=== PATIENT | male | born 1960 | race American Indian/Alaskan Native ===

== ENCOUNTER 2017-08-19 20:52 | Inpatient (IN) | payer BC ==
[2017-08-19] MEDS ORDERED: ASPIRIN PO ONE (21:24)
[2017-08-19 21:43] LABS: Basophils % (Auto) 0.5 % (0.0-1.8); Eosinophils % (Auto) 0.4 % (0.0-4.3); Hematocrit 50.7 % (35.5-45.6); Hemoglobin 16.9 gm/dl (11.8-15.2); Lymphocytes # (Auto) 1.6 K/mm3 (1.2-5.4); Lymphocytes % (Auto) 17.6 % (13.4-35.0); Mean Corpuscular HGB Conc 33 % (32-34); Mean Corpuscular Hemoglobin 31 pg (28-32); Mean Corpuscular Volume 92 fl (84-94); Monocytes # (Auto) 0.6 K/mm3 (0.0-0.8); Monocytes % (Auto) 6.6 % (0.0-7.3); Platelet Count 225 K/mm3 (140-440); Red Blood Count 5.51 M/mm3 (3.65-5.03)
[2017-08-19 22:18] LABS: Chol/HDL Ratio 2.93 %
--- NOTE | 2017-08-19 22:42 | Emergency Department Report ---
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 Reports driving over 400 miles over the past few days consecutively. Comes to the ER on the day of presentation after passing out a few times and feeling weak and dizzy. This is a new sensation for him. It is associated with intermittent chest pain. Chest pains described as tight. It does not have exacerbating or relieving factors. He denies hematemesis and bright red blood per rectum. He complains of acute on chronic mechanical lower back pain. He denies focal extremity weakness, numbness. -: Sudden Location: chest Quality: aching Consistency: intermittent Improves with: movement, rest Associated Symptoms: chest pain, loss of appetite, malaise, shortness of breath , syncope, weakness. denies: confusion, cough, diaphoresis, fever/chills, headaches, nausea/vomiting, rash, seizure - Related Data Home Medications Medication Instructions Recorded Confirmed Last Taken Unobtainable 08/19/17 08/19/17 Unknown Allergies Allergy/AdvReac Type Severity Reaction Status Date / Time No Known Allergies Allergy Unverified 08/19/17 21:23 ED Review of Systems ROS: Stated complaint: CHEST PAIN Other details as noted in HPI Constitutional: malaise, weakness Eyes: denies: eye discharge ENT: denies: epistaxis Respiratory: shortness of breath Cardiovascular: syncope Gastrointestinal: denies: hematemesis, hematochezia Genitourinary: denies: dysuria Musculoskeletal: back pain Skin: denies: lesions Neurological: weakness Psychiatric: anxiety ED Past Medical Hx - Past Medical History Hx Hypertension: Yes - Surgical History Past Surgical History?: No - Social History Smoking Status: Current Every Day Smoker Substance Use Type: None - Medications Home Medications: Home Medications Medication Instructions Recorded Confirmed Last Taken Type Unobtainable 08/19/17 08/19/17 Unknown History ED Physical Exam - General Limitations: No Limitations General appearance: alert, in distress - Head Head exam: Present: atraumatic, normocephalic - Eye Eye exam: Present: normal appearance - ENT ENT exam: Present: normal exam, normal orophraynx, mucous membranes moist - Neck Neck exam: Present: normal inspection - Respiratory Respiratory exam: Present: normal lung sounds bilaterally. Absent: respiratory distress - Cardiovascular Cardiovascular Exam: Present: normal rhythm, tachycardia, normal heart sounds. Absent: systolic murmur, diastolic murmur, rubs, gallop - GI/Abdominal GI/Abdominal exam: Present: soft, normal bowel sounds. Absent: distended, tenderness, guarding, rebound, rigid, pulsatile mass - Rectal Rectal exam: Present: deferred - Extremities Exam Extremities exam: Present: normal inspection, full ROM, normal capillary refill , pedal edema, other (2+ pulses noted in the bilateral upper, lower extremities. ). Absent: tenderness, calf tenderness - Back Exam Back exam: Present: normal inspection, full ROM. Absent: tenderness, CVA tenderness (R), paraspinal tenderness, vertebral tenderness - Neurological Exam Neurological exam: Present: alert, oriented X3, CN II-XII intact, normal gait. Absent: motor sensory deficit - Psychiatric Psychiatric exam: Present: normal affect, normal mood - Skin Skin exam: Present: warm, dry, intact, normal color. Absent: rash ED Course Vital Signs 08/19/17 08/19/17 08/19/17 21:01 21:15 22:40 Temperature 97.7 F 97.7 F Pulse Rate 110 H 70 Respiratory 16 22 Rate Blood Pressure 96/69 96/69 O2 Sat by Pulse 91 100 96 Oximetry 08/19/17 08/19/17 08/19/17 22:46 23:00 23:08 Temperature Pulse Rate Respiratory 14 24 Rate Blood Pressure 95/61 O2 Sat by Pulse 95 95 Oximetry 08/19/17 08/19/17 08/19/17 23:40 23:46 23:50 Temperature Pulse Rate Respiratory 10 L Rate Blood Pressure 83/53 126/82 126/82 O2 Sat by Pulse 94 92 Oximetry 08/20/17 00:28 Temperature Pulse Rate Respiratory Rate Blood Pressure 126/82 O2 Sat by Pulse 97 Oximetry ED Medical Decision Making - Lab Data Result diagrams: 08/19/17 23:36 08/19/17 21:30 - EKG Data -: EKG Interpreted by Me Rate: tachycardia - EKG Data 08/20/17 00:56 Sinus tachycardia, left axis deviation, left anterior fascicular block, basic T wave V3, V4, abnormal EKG, not a stemi - Radiology Data Radiology results: report reviewed, image reviewed X-ray of the chest is negative for acute disease. Noncontrast CT scan of the brain is negative. Noncontrast CT scan of the lungs/thorax negative. 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 High probability for pulmonary embolus. Patient could not be systemically anticoagulated until a noncontrast CT scan of the brain resulted as negative for hemorrhage. Laboratory studies suggest massive/submassive pulmonary embolus. Case discussed with vascular surgery consult Dr. Martinez, who was in agreement with noncontrast CT scan of the chest to assess for right ventricular strain (it is his opinion that the CT scan of the chest does demonstrate a dilated main pulmonary artery as well as a dilated right ventricle), as well as to obtain an empiric new clean medicine study. He is amenable to unfractionated heparin bolus and then drip. The patient's physical exam findings, laboratory studies and radiology studies have been discussed with Dr. Martinez, and he plans to perform a catheter directed lysis first thing in the morning. The patient does not have contraindications to systemic anticoagulation. There is no pulsatile abdominal mass, and he complained of chronic mechanical lower back pain for which she received fentanyl. His blood pressure improved with supportive care. Case was discussed with cardiology on-call, Dr. Sosa Valdez; his group will follow in consultation. Case presented to the Hospital physician, Dr. Morillo, who accepted the patient to the medical service. Patient will be triaged to the intensive care unit with presumed diagnosis of submassive pulmonary embolus, the ICU physician has been paged to arrange admission. Critical Care Time: Yes Critical care time in (mins) excluding proc time.: 60 Critical care attestation.: If time is entered above; I have spent that time in minutes in the direct care of this critically ill patient, excluding procedure time. ED Disposition Clinical Impression: MAITE (acute kidney injury) Syncope Qualifiers: Syncope type: unspecified Qualified Code(s): R55 - Syncope and collapse Disposition: OP ADMIT IP TO THIS HOSP Is pt being admited?: Yes Condition: Critical Instructions: Syncope (ED) Referrals: PRIMARY CARE, [Primary Care Provider] - 3-5 Days
[2017-08-19] MEDS ORDERED: SUBLIMAZE IV ONE (22:56)
[2017-08-19] MEDS ORDERED: NACL 0.9% 250ML 250 ML IV ONE (22:57)
[2017-08-19] MEDS ORDERED: HEPARIN 10,000 UNITS/10 ML IV ONE (23:08)
--- NOTE | 2017-08-19 23:11 | XRay Report ---
FINAL REPORT EXAM: XR CHEST 1V AP HISTORY: Chestpain and ESTEPHANIE TECHNIQUE: upright single view chest PRIORS: None. FINDINGS: Cardiac and mediastinal contours are unremarkable. No focal pulmonary infiltrate is identified. No pleural fluid collection seen. Pulmonary vasculature is unremarkable. IMPRESSION: Negative single-view chest
[2017-08-19 23:32] LABS: INR 1.01 (0.87-1.13)
[2017-08-19 23:33] LABS: Partial Thromboplastin Time 30.9 Sec. (24.2-36.6)
--- NOTE | 2017-08-19 23:33 | Event Note ---
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 No STEMI on EKG. Discussed with Dr. Perea. Bedside echo was attempted but pictures were poor quality. Recommend noncontrast CT of the chest to exclude lung pathology and attempt to assess right to left ventricle ratio, and VQ scan to exclude pulmonary embolism. Based on CT scan and VQ scan, can determine if PE and need for catheter directed thrombolysis. Heparin drip in the interim is reasonable based on the patient's serious condition, and time it will take to obtain a VQ scan.
[2017-08-19] MEDS ORDERED: HEPARIN/ 0.45% NACL-25,000 UNIT/500 ML 25,000 UNIT/500 ML BAG IV SCH (23:45)
[2017-08-19 23:48] LABS: Hematocrit 46.4 % (35.5-45.6); Hemoglobin 16.2 gm/dl (11.8-15.2)
--- NOTE | 2017-08-19 23:59 | Cat Scan Report ---
FINAL REPORT EXAM: CT HEAD/BRAIN WO CON HISTORY: syncope TECHNIQUE: CT head without contrast PRIORS: None. FINDINGS: No acute intra-axial or extra-axial hemorrhage is identified. There is no evidence of midline shift or mass effect. The ventricles and sulci are within normal limits. Campbell-white matter differentiation is intact. No acute parenchymal abnormalities seen. Bony calvarium is grossly intact. Visualized portions of the mastoids and paranasal sinuses are unremarkable. IMPRESSION: Negative CT head
--- NOTE | 2017-08-20 00:37 | Cat Scan Report ---
FINAL REPORT PROCEDURE: CT CHEST WO CON TECHNIQUE: Computerized axial tomography of the chest was performed without contrast material. This study is performed without intravenous contrast and the sensitivity for pathology, including neoplasms, adenopathy, abscess, pulmonary embolism and aortic dissection, is reduced. HISTORY: dyspnea COMPARISON: No prior studies are available for comparison. TECHNICAL QUALITY: Satisfactory. FINDINGS: Heart and pericardium: Normal. Thoracic aorta: Normal. Pulmonary vasculature: Normal. Lymph nodes: No enlarged thoracic lymph nodes. Lungs: There is suboptimal inspiration. There is discoid atelectasis at the lung bases. There are no active infiltrates.. Pleural space: No effusion, thickening, or pneumothorax. Musculoskeletal structures: No significant abnormality. Upper abdominal structures: No significant abnormality. There is a lobulated cyst in the left kidney measuring 2.8 centimeters. IMPRESSION: There is no acute cardiopulmonary abnormality..
--- NOTE | 2017-08-20 00:51 | Nuclear Medicine Report ---
FINAL REPORT PROCEDURE: NM LUNG SCAN PERF/VENT TECHNIQUE: Five mCi Tc-99m MAA was injected IV for pulmonary perfusion imaging in multiple projections. Fifteen mCi XE-133 was inhaled for pulmonary ventilation imaging in multiple projections. Injection site: RIGHT antecubital fossa. CPT 25396 REGULATORY GUIDELINES: The patient was released based upon guidelines established in [place] State Regulations for Protection Against Radiation, Chapter 1199-03-16-35, Release of Individuals Containing Radioactive Drugs or Implants. HISTORY: suspect pe COMPARISON: No prior studies are available for comparison. FINDINGS: Perfusion: There are segmental perfusion defects in the right lung.. Ventilation: No defects . IMPRESSION: High probability of pulmonary embolism involving the right pulmonary artery. Dr. Kyle was notified by telephone at 11:41 p.m. [facility]
[2017-08-20] MEDS ORDERED: SODIUM CHLORIDE FLUSH SYRINGE 10 ML IV PRN (01:46)
[2017-08-20] MEDS ORDERED: TYLENOL PO PRN (01:46)
[2017-08-20] MEDS ORDERED: ZOFRAN IV PRN (01:46)
[2017-08-20] MEDS ORDERED: MORPHINE IV PRN (01:46)
--- NOTE | 2017-08-20 01:52 | History and Physical Report ---
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 He drove to [place], and the yesterday, he came out of the truck after 3 hours and after walking a few steps lightheaded and had a syncopal episode, unclear how long. He finished up his work, drove back to [place], when he got home and came out of his vehicle, he had another syncopal episode. He also complained of nausea, feeling sick, shortness of breath and left-sided chest pain. The pain he described as dull, constant, intensity 7/10 radiating to the back. Review of systems Constitutional: no weight loss, chills, fever Ears, eyes, nose, mouth and throat: no nasal congestion, no nasal discharge, no sinus pressure, no vision change, no red eye. Neck: No neck pain or rigidity. Cardiovascular: no chest pain, palpitations Respiratory: no cough, shortness of breath Gastrointestinal: no abdominal pain hematochezia Genitourinary : no frequency , no hematuria Musculoskeletal: no joint swelling or muscle ache Integumentary: no rash, no pruritis Neurological: no parathesias, no numbness, no focal weakness Endocrine: no cold or heat intolerance, no polyuria or polydipsia Hematologic/Lymphatic: no easy bruising, no easy bleeding, no gland swelling Allergic/Immunologic: no urticaria, no angioedema. PAST MEDICAL HISTORY: Hypertension, chronic kidney disease PAST SURGICAL HISTORY: Hand surgery SOCIAL HISTORY: No alcohol, no drugs, tobacco FAMILY HISTORY: Hypertension Medications and Allergies Allergies Allergy/AdvReac Type Severity Reaction Status Date / Time No Known Allergies Allergy Unverified 08/19/17 21:23 Home Medications Medication Instructions Recorded Confirmed Last Taken Type Unobtainable 08/19/17 08/19/17 Unknown History Active Meds: Active Medications Acetaminophen (Tylenol) 650 mg PO Q4H PRN PRN Reason: Pain MILD(1-3)/Fever >100.5/SHELBY Heparin Sodium/Sodium Chloride (Heparin/ 0.45% Nacl-25,000 Unit/500 Ml) 25,000 unit in 500 mls @ 29 mls/hr IV TITR OPHELIA; Protocol Last Admin: 08/20/17 01:02 Dose: 1,450 units/hr, 29 mls/hr Morphine Sulfate (Morphine) 2 mg IV Q4H PRN PRN Reason: Pain, Moderate (4-6) Ondansetron HCl (Zofran) 4 mg IV Q8H PRN PRN Reason: Nausea And Vomiting Sodium Chloride (Sodium Chloride Flush Syringe 10 Ml) 10 ml IV BID OPHELIA Exam - Physical Exam Narrative exam: Gen. appearance: Patient lying in bed, no apparent distress HEENT: Normocephalic, atraumatic, pupils equally round and reactive to light, extraocular movement intact, and no sclericterus,. No JVD or thyromegaly or nodule,neck supple, no carotid bruit ,mucous membranes moist, no exudate or erythema Heart: S1, S2, regular rate and rhythm Lungs: Clear bilaterally, breathing comfortable Abdomen: Positive bowel sounds, non-tender, nondistended, no organomegaly Extremity:no edema cyanosis, clubbing Skin: no rash, dry, warm Neuro: Oriented 3, cranial nerves II-12 intact, speech is fluent, motor and sensory intact - Constitutional Vitals: Temp Pulse Resp BP Pulse Ox 97.7 F 102 H 19 92/60 95 08/19/17 21:15 08/20/17 00:46 08/20/17 00:46 08/20/17 00:46 08/20/17 00:46 Results - Labs CBC & Chem 7: 08/19/17 23:36 08/19/17 21:30 Labs: Abnormal lab results 08/19/17 08/19/17 08/19/17 Range/Units 21:30 21:30 23:08 RBC 5.51 H (3.65-5.03) M/mm3 Hgb 16.9 H (11.8-15.2) gm/dl Hct 50.7 H (35.5-45.6) % Seg Neutrophils % 74.9 H (40.0-70.0) % Carbon Dioxide 21 L (22-30) mmol/L Creatinine 1.7 H (0.8-1.5) mg/dL Glucose 137 H (75-100) mg/dL Calcium 11.0 H (8.4-10.2) mg/dL Total Creatine Kinase 281 H (55-170) units/L Troponin T 0.200 H* (0.00-0.029) ng/mL NT-Pro-B Natriuret Pep 3990 H (0-900) pg/mL 08/19/17 Range/Units 23:36 RBC (3.65-5.03) M/mm3 Hgb 16.2 H (11.8-15.2) gm/dl Hct 46.4 H (35.5-45.6) % Seg Neutrophils % (40.0-70.0) % Carbon Dioxide (22-30) mmol/L Creatinine (0.8-1.5) mg/dL Glucose (75-100) mg/dL Calcium (8.4-10.2) mg/dL Total Creatine Kinase (55-170) units/L Troponin T (0.00-0.029) ng/mL NT-Pro-B Natriuret Pep (0-900) pg/mL - Imaging and Cardiology EKG: image reviewed Chest x-ray: report reviewed CT scan - chest: report reviewed CT Scan - head: report reviewed Assessment and Plan v/q showed high probability of pulmonary emboli Assessment Acute pulmonary emboli Abnormal cardiac enzymes most likely secondary to #1 Hypertension Chronic kidney disease Plan Admit to medicine Continue heparin drip, monitor serial hemoglobin Consult vascular cardiology Check Doppler of the lower extremity DVT prophylaxis
[2017-08-20 08:45] LABS: Hematocrit 45.2 % (35.5-45.6); Hemoglobin 15.3 gm/dl (11.8-15.2); Mean Corpuscular HGB Conc 34 % (32-34); Mean Corpuscular Hemoglobin 31 pg (28-32); Mean Corpuscular Volume 91 fl (84-94); Platelet Count 200 K/mm3 (140-440); Red Blood Count 4.96 M/mm3 (3.65-5.03); Red Cell Distribution Width 13.8 % (13.2-15.2)
--- NOTE | 2017-08-20 10:11 | Consultation ---
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 Patient denies any chest pain any nausea vomiting has some right tingliness of the right foot with mild swelling. I reviewed the noncontrast CT which demonstrates right to left ventricular enlargement greater than 1. The exact ratio is difficult to determine due to lack of contrast. Echo confirms severe right heart strain. VQ scan demonstrates high probability of PE. Patient has acute renal failure precluding CT angiogram. Has elevated BNP and troponins. Patient was initially hypotensive upon arrival, but this improved with administration of IV fluids. He was still tachycardic at time that I visited him, and had labored breathing. Past History Past Medical History: hypertension, other (renal insufficiency) Past Surgical History: Other (hand surgery) Social history: denies: alcohol abuse, IV drug use Family history: hypertension Medications and Allergies Allergies Allergy/AdvReac Type Severity Reaction Status Date / Time No Known Allergies Allergy Unverified 08/19/17 21:23 Home Medications Medication Instructions Recorded Confirmed Last Taken Type Unobtainable 08/19/17 08/19/17 Unknown History Active Meds: Active Medications Acetaminophen (Tylenol) 650 mg PO Q4H PRN PRN Reason: Pain MILD(1-3)/Fever >100.5/SHELBY Heparin Sodium/Sodium Chloride (Heparin/ 0.45% Nacl-25,000 Unit/500 Ml) 25,000 unit in 500 mls @ 29 mls/hr IV TITR OPHELIA; Protocol Last Admin: 08/20/17 01:02 Dose: 1,450 units/hr, 29 mls/hr Morphine Sulfate (Morphine) 2 mg IV Q4H PRN PRN Reason: Pain, Moderate (4-6) Last Admin: 08/20/17 03:15 Dose: 2 mg Ondansetron HCl (Zofran) 4 mg IV Q8H PRN PRN Reason: Nausea And Vomiting Sodium Chloride (Sodium Chloride Flush Syringe 10 Ml) 10 ml IV BID OPHELIA Sodium Chloride (Sodium Chloride Flush Syringe 10 Ml) 10 ml IV PRN PRN PRN Reason: LINE FLUSH Review of Systems All systems: negative (see HPI) Exam - Constitutional Vitals: Temp Pulse Resp BP Pulse Ox 98.6 F 90 14 105/67 95 08/20/17 07:42 08/20/17 07:42 08/20/17 07:42 08/20/17 07:42 08/20/17 08:14 General appearance: Present: mild distress (mild labored breathing) - EENT Eyes: Present: EOM intact ENT: hearing intact - Respiratory Respiratory effort: labored - Cardiovascular Rhythm: other (tachycardic) - Extremities Extremities: normal temperature, normal color Extremity abnormal: edema (mild right lower extremity edema) Peripheral Pulses: within normal limits - Abdominal General gastrointestinal: Present: soft - Psychiatric Psychiatric: appropriate mood/affect, cooperative Results - Labs CBC & Chem 7: 08/20/17 11:49 08/20/17 11:49 Labs: Abnormal lab results 08/19/17 08/19/17 08/19/17 Range/Units 21:30 21:30 23:08 RBC 5.51 H (3.65-5.03) M/mm3 Hgb 16.9 H (11.8-15.2) gm/dl Hct 50.7 H (35.5-45.6) % Seg Neutrophils % 74.9 H (40.0-70.0) % Carbon Dioxide 21 L (22-30) mmol/L Creatinine 1.7 H (0.8-1.5) mg/dL Glucose 137 H (75-100) mg/dL Calcium 11.0 H (8.4-10.2) mg/dL Total Creatine Kinase 281 H (55-170) units/L Troponin T 0.200 H* (0.00-0.029) ng/mL NT-Pro-B Natriuret Pep 3990 H (0-900) pg/mL 08/19/17 08/20/17 08/20/17 Range/Units 23:36 01:16 03:20 RBC (3.65-5.03) M/mm3 Hgb 16.2 H (11.8-15.2) gm/dl Hct 46.4 H (35.5-45.6) % Seg Neutrophils % (40.0-70.0) % Carbon Dioxide (22-30) mmol/L Creatinine (0.8-1.5) mg/dL Glucose (75-100) mg/dL Calcium (8.4-10.2) mg/dL Total Creatine Kinase (55-170) units/L Troponin T 0.161 H* 0.143 H* (0.00-0.029) ng/mL NT-Pro-B Natriuret Pep (0-900) pg/mL 08/20/17 Range/Units 08:18 RBC (3.65-5.03) M/mm3 Hgb 15.3 H (11.8-15.2) gm/dl Hct (35.5-45.6) % Seg Neutrophils % (40.0-70.0) % Carbon Dioxide (22-30) mmol/L Creatinine (0.8-1.5) mg/dL Glucose (75-100) mg/dL Calcium (8.4-10.2) mg/dL Total Creatine Kinase (55-170) units/L Troponin T (0.00-0.029) ng/mL NT-Pro-B Natriuret Pep (0-900) pg/mL - Imaging and Cardiology CT scan - chest: report reviewed, image reviewed Venous US: report reviewed, image reviewed, other (VQ scan) Assessment and Plan 57-year-old male with submassive pulmonary embolism with right heart strain, positive biomarkers, tachycardia, shortness of breath, and originally hypotension with high probability VQ scan, right lower extremity DVT, and 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 Discussed catheter directed thrombolytic therapy, with risks, benefits, and alternatives. Patient agrees to procedure. Patient is a candidate given elevated biomarkers with right heart strain.
[2017-08-20] MEDS ORDERED: XYLOCAINE 2% INFILTRATI ONE (10:56)
[2017-08-20] MEDS ORDERED: HEPARIN/NS 5000 UNIT/500ML(CATH LAB) 1,000 ML IR ONE (10:56)
[2017-08-20] MEDS ORDERED: CATHFLO ONE ×2 (10:57→11:52)
[2017-08-20] MEDS ORDERED: VERSED ONE (10:57)
[2017-08-20] MEDS ORDERED: ANCEF/STERILE WATER 2 GM/20 ML 2 GM/20 ML SYRINGE IV ONE (10:57)
[2017-08-20] MEDS ORDERED: SUBLIMAZE ONE (10:57)
[2017-08-20] MEDS ORDERED: WATER FOR INJ (PF) ONE (10:58)
[2017-08-20] MEDS ORDERED: CATHFLO 10 MG in NACL 0.9% 250ML 250 ML IV SCH (11:00)
[2017-08-20] MEDS ORDERED: NACL 0.9% 1000 ML 1,000 ML IV SCH (11:00)
[2017-08-20] MEDS ORDERED: NACL 0.9% 1000 ML 1,000 ML EKOSCLUMEN SCH ×2 (11:00)
[2017-08-20] MEDS ORDERED: HEPARIN/ 0.45% NACL-25,000 UNIT/500 ML 25,000 UNIT/500 ML BAG SHEATH SCH ×2 (11:00)
[2017-08-20] MEDS ORDERED: NACL 0.9% 1000 ML 1,000 ML SHEATH SCH ×2 (11:00)
[2017-08-20] MEDS ORDERED: CATHFLO 10 MG in NACL 0.9% 250ML 250 ML EKOSDLUMEN SCH (11:00)
--- NOTE | 2017-08-20 11:01 | Consultation ---
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 Patient denies any chest pain any nausea vomiting has some right tingliness of the right foot Past History Past Medical History: hypertension Past Surgical History: Other (left arm surgery) Social history: smoking. denies: alcohol abuse, prescription drug abuse Family history: denies: no significant family history Medications and Allergies Allergies Allergy/AdvReac Type Severity Reaction Status Date / Time No Known Allergies Allergy Unverified 08/19/17 21:23 Home Medications Medication Instructions Recorded Confirmed Last Taken Type Unobtainable 08/19/17 08/19/17 Unknown History Active Meds: Active Medications Acetaminophen (Tylenol) 650 mg PO Q4H PRN PRN Reason: Pain MILD(1-3)/Fever >100.5/SHELBY Acetaminophen/Hydrocodone Bitart ([place] 5/325) 2 each PO Q6H PRN PRN Reason: Pain, Moderate (4-6) Hydromorphone HCl (Dilaudid) 0.25 mg IV Q3H PRN PRN Reason: Pain, Moderate (4-6) Alteplase, Recombinant 10 mg/ (Sodium Chloride) 250 mls @ 10 mls/hr IV DIRECT OPHELIA Alteplase, Recombinant 10 mg/ (Sodium Chloride) 250 mls @ 10 mls/hr EKOSDLUMEN DIRECT OPHELIA Heparin Sodium/Sodium Chloride (Heparin/ 0.45% Nacl-25,000 Unit/500 Ml) 25,000 unit in 500 mls @ 10 mls/hr SHEATH DIRECT OPHELIA; Protocol Heparin Sodium/Sodium Chloride (Heparin/ 0.45% Nacl-25,000 Unit/500 Ml) 25,000 unit in 500 mls @ 10 mls/hr SHEATH DIRECT OPHELIA; Protocol Sodium Chloride (Nacl 0.9% 1000 Ml) 1,000 mls @ 30 mls/hr IV DIRECT OPHELIA Sodium Chloride (Nacl 0.9% 1000 Ml) 1,000 mls @ 35 mls/hr EKOSCLUMEN DIRECT OPHELIA Sodium Chloride (Nacl 0.9% 1000 Ml) 1,000 mls @ 30 mls/hr SHEATH DIRECT OPHELIA Sodium Chloride (Nacl 0.9% 1000 Ml) 1,000 mls @ 35 mls/hr EKOSCLUMEN DIRECT OPHELIA Sodium Chloride (Nacl 0.9% 1000 Ml) 1,000 mls @ 30 mls/hr SHEATH DIRECT OPHELIA Ondansetron HCl (Zofran) 4 mg IV Q8H PRN PRN Reason: Nausea Sodium Chloride (Sodium Chloride Flush Syringe 10 Ml) 10 ml IV BID OPHELIA Sodium Chloride (Sodium Chloride Flush Syringe 10 Ml) 10 ml IV PRN PRN PRN Reason: LINE FLUSH Review of Systems All systems: negative (as per the HPI) Physical Examination Vital Signs Temp Pulse Resp BP Pulse Ox 97.7 F 110 H 16 96/69 91 08/19/17 21:01 08/19/17 21:01 08/19/17 21:01 08/19/17 21:01 08/19/17 21:01 General appearance: no acute distress, well-nourished HEENT: Positive: PERRL, Mucus Membranes Moist Neck: Positive: neck supple, trachea midline Cardiac: Positive: Reg Rate and Rhythm, S1/S2, Audible Murmur Lungs: Positive: clear to auscultation, Normal Breath Sounds Neuro: Positive: Grossly Intact Abdomen: Positive: Soft, Active Bowel Sounds. Negative: Tender, Distended Male genitourinary: Positive: normal Skin: Positive: Clear Incision: Cardiac Cath Site Musculoskeletal: No Pain, Normal Range of Motion Extremities: Present: normal. Absent: edema Results 08/20/17 08:18 08/19/17 21:30 Coagulation 08/19/17 Range/Units 23:08 PT 13.8 (12.2-14.9) Sec. INR 1.01 (0.87-1.13) APTT 30.9 (24.2-36.6) Sec. Lipids 08/19/17 Range/Units 21:30 Triglycerides 79 (2-149) mg/dL Cholesterol 138 (50-199) mg/dL HDL Cholesterol 47 (40-59) mg/dL Cholesterol/HDL Ratio 2.93 % CBC 08/19/17 08/19/17 08/20/17 Range/Units 21:30 23:36 08:18 WBC 8.9 9.3 (4.5-11.0) K/mm3 RBC 5.51 H 4.96 (3.65-5.03) M/mm3 Hgb 16.9 H 16.2 H 15.3 H (11.8-15.2) gm/dl Hct 50.7 H 46.4 H 45.2 (35.5-45.6) % Plt Count 225 221 200 (140-440) K/mm3 Lymph # 1.6 (1.2-5.4) K/mm3 [place] # 0.6 (0.0-0.8) K/mm3 Eos # 0.0 (0.0-0.4) K/mm3 Baso # 0.0 (0.0-0.1) K/mm3 Comprehensive Metabolic Panel 08/19/17 Range/Units 21:30 Sodium 140 (137-145) mmol/L Potassium 3.6 (3.6-5.0) mmol/L Chloride 98.5 (98-107) mmol/L Carbon Dioxide 21 L (22-30) mmol/L BUN 20 (9-20) mg/dL Creatinine 1.7 H (0.8-1.5) mg/dL Glucose 137 H (75-100) mg/dL Calcium 11.0 H (8.4-10.2) mg/dL - Imaging and Cardiology Echo: report reviewed (normal LV function mild mitral regurgitation no aortic stenosis right ventricle is severely dilated and dysfunctional with RV pressure overload noted) EKG interpretations - Telemetry EKG Rhythm: Sinus Rhythm (sinus rhythm and nonspecific ST-T's) Assessment and Plan Syncope Acute pulmonary embolism with RV dysfunction Cor pulmonale Smoker Non-ST elevation MD type II Hypertension Acute renal insufficiency Recommend agree with ekos procedure for acute pulmonary embolization with RV dysfunction and continue IV hydration
[2017-08-20] MEDS ORDERED: NACL 0.9% 1000 ML 2,000 ML ONE (11:03)
[2017-08-20] MEDS ORDERED: HEPARIN/ 0.45% NACL-25,000 UNIT/500 ML 50,000 UNIT/1,000 ML BAG ONE (11:03)
[2017-08-20] MEDS: NACL 0.9% 500 ML 500 ML ONE (11:35)
[2017-08-20] MEDS: HEPARIN 10,000 UNITS/10 ML ONE ×3 (11:49→12:03)
--- NOTE | 2017-08-20 11:53 | Event Note ---
Date: 08/20/17 Pt seen and examined Presented with RT PE with Rt heart strain on echo, elevated troponin s/p EKOS thrombolytic catheter in the right lower lobar segmental pulmonary artery today by vascular cont current Mx, monitor at ICU
[2017-08-20] MEDS: CATHFLO ONE ×2 (12:01→12:02)
[2017-08-20 12:10] LABS: Basophils # (Auto) 0.1 K/mm3 (0.0-0.1); Eosinophils # (Auto) 0.1 K/mm3 (0.0-0.4); Eosinophils % (Auto) 1.6 % (0.0-4.3); Hematocrit 43.3 % (35.5-45.6); Hemoglobin 14.7 gm/dl (11.8-15.2); Lymphocytes # (Auto) 2.5 K/mm3 (1.2-5.4); Lymphocytes % (Auto) 30.6 % (13.4-35.0); Mean Corpuscular HGB Conc 34 % (32-34); Mean Corpuscular Hemoglobin 31 pg (28-32); Mean Corpuscular Volume 91 fl (84-94); Monocytes # (Auto) 0.8 K/mm3 (0.0-0.8); Monocytes % (Auto) 9.7 % (0.0-7.3); Platelet Count 191 K/mm3 (140-440); Red Blood Count 4.78 M/mm3 (3.65-5.03); Red Cell Distribution Width 14.1 % (13.2-15.2)
[2017-08-20 12:19] LABS: INR 1.01 (0.87-1.13)
--- NOTE | 2017-08-20 12:25 | Consultation ---
History of Present Illness Consult date: 08/20/17 Reason for consult: chest pain, pulmonary embolism History of present illness: PULMONARY AND CRITICAL CARE CONSULTATION Dr. Machado thank you for asking us to participate in the care of this patient. 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 Patient admitted to the ICU.Patient has history of smoking 1/2 a pack a day x 20 years.Denies alcohol or drug abuse. Not . No children.No known allergies. Patient denies fever, chills or weight loss. Past History Past Medical History: hypertension, other (CKD) Past Surgical History: Other (left arm surgery) Social history: smoking. denies: alcohol abuse, prescription drug abuse Family history: denies: no significant family history Medications and Allergies Allergies Allergy/AdvReac Type Severity Reaction Status Date / Time No Known Allergies Allergy Unverified 08/19/17 21:23 Home Medications Medication Instructions Recorded Confirmed Last Taken Type Unobtainable 08/19/17 08/19/17 Unknown History Active Meds: Active Medications Acetaminophen (Tylenol) 650 mg PO Q4H PRN PRN Reason: Pain MILD(1-3)/Fever >100.5/SHELBY Acetaminophen/Hydrocodone Bitart ([place] 5/325) 2 each PO Q6H PRN PRN Reason: Pain, Moderate (4-6) Hydromorphone HCl (Dilaudid) 0.25 mg IV Q3H PRN PRN Reason: Pain, Moderate (4-6) Alteplase, Recombinant 10 mg/ (Sodium Chloride) 250 mls @ 10 mls/hr IV DIRECT OPHELIA Alteplase, Recombinant 10 mg/ (Sodium Chloride) 250 mls @ 10 mls/hr EKOSDLUMEN DIRECT OPHELIA Heparin Sodium/Sodium Chloride (Heparin/ 0.45% Nacl-25,000 Unit/500 Ml) 25,000 unit in 500 mls @ 10 mls/hr SHEATH DIRECT OPHELIA; Protocol Heparin Sodium/Sodium Chloride (Heparin/ 0.45% Nacl-25,000 Unit/500 Ml) 25,000 unit in 500 mls @ 10 mls/hr SHEATH DIRECT OPHELIA; Protocol Sodium Chloride (Nacl 0.9% 1000 Ml) 1,000 mls @ 30 mls/hr IV DIRECT OPHELIA Sodium Chloride (Nacl 0.9% 1000 Ml) 1,000 mls @ 35 mls/hr EKOSCLUMEN DIRECT OPHELIA Sodium Chloride (Nacl 0.9% 1000 Ml) 1,000 mls @ 30 mls/hr SHEATH DIRECT OPHELIA Sodium Chloride (Nacl 0.9% 1000 Ml) 1,000 mls @ 35 mls/hr EKOSCLUMEN DIRECT OPHELIA Sodium Chloride (Nacl 0.9% 1000 Ml) 1,000 mls @ 30 mls/hr SHEATH DIRECT OPHELIA Ondansetron HCl (Zofran) 4 mg IV Q8H PRN PRN Reason: Nausea Sodium Chloride (Sodium Chloride Flush Syringe 10 Ml) 10 ml IV BID OPHELIA Sodium Chloride (Sodium Chloride Flush Syringe 10 Ml) 10 ml IV PRN PRN PRN Reason: LINE FLUSH Review of Systems All systems: negative Physical Examination Vital signs: Vital Signs Temp Pulse Resp BP Pulse Ox 97.7 F 110 H 16 96/69 91 08/19/17 21:01 08/19/17 21:01 08/19/17 21:01 08/19/17 21:01 08/19/17 21:01 General appearance: no acute distress, alert Eyes: non-icteric ENT: oropharynx moist Neck: supple, no JVD Ascultation: Bilateral: diminished breath sounds Cardiovascular: regular rate and rhythm Gastrointestinal: normoactive bowel sounds, soft, non-tender Integumentary: normal Extremities: other (Pain in left leg.) Musculoskeletal: no deformities normal mental status, non-focal exam, pupils equal and round, CN II-XII normal mood appropriate Results - Laboratory Findings CBC and BMP: 08/21/17 15:13 08/21/17 06:12 PT/INR, D-dimer PT 13.8 Sec. (12.2-14.9) 08/19/17 23:08 INR 1.01 (0.87-1.13) 08/19/17 23:08 Abnormal lab findings: Abnormal Labs 08/19/17 08/19/17 08/19/17 21:30 21:30 23:08 RBC 5.51 H Hgb 16.9 H Hct 50.7 H [place] % (Auto) Seg Neutrophils % 74.9 H Carbon Dioxide 21 L Creatinine 1.7 H Glucose 137 H Calcium 11.0 H Total Creatine Kinase 281 H Troponin T 0.200 H* NT-Pro-B Natriuret Pep 3990 H 08/19/17 08/20/17 08/20/17 23:36 01:16 03:20 RBC Hgb 16.2 H Hct 46.4 H [place] % (Auto) Seg Neutrophils % Carbon Dioxide Creatinine Glucose Calcium Total Creatine Kinase Troponin T 0.161 H* 0.143 H* NT-Pro-B Natriuret Pep 08/20/17 08/20/17 08:18 11:49 RBC Hgb 15.3 H Hct [place] % (Auto) 9.7 H Seg Neutrophils % Carbon Dioxide Creatinine Glucose Calcium Total Creatine Kinase Troponin T NT-Pro-B Natriuret Pep - Diagnostic Findings Chest x-ray: report reviewed (Negative single view of chest reported.), image reviewed CT scan - chest: report reviewed (No acute cardiopulmonary abnormality.), image reviewed Additional studies: V/Q scan reported high probability for pulmonary emboli. 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 Patient admitted to the ICU.Patient has history of smoking 1/2 a pack a day x 20 years.Denies alcohol or drug abuse. Not . No children.No known allergies. Patient denies fever, chills or weight loss. Patient was seen and examined him in the CCU. I spent direct critical care time of 55 minutes obtaining history, examine the patient, review Chest xray and Perfusion lung scan report and CT of chest, talking to the nursing staff and primary care physician and work out plan of treatment - Patient Problems (1) Pulmonary embolism Current Visit: Yes Status: Acute Plan to address problem: Patient received Anteplase and presently on I/V Heparin. O2 2 litres via nasal canula. (2) Chest pain Current Visit: Yes Status: Acute Plan to address problem: Chest pain is better now. Cardiology on consultation. (3) Syncope Current Visit: Yes Status: Acute Qualifiers: Syncope type: unspecified Qualified Code(s): R55 - Syncope and collapse Plan to address problem: Recommend to consult neurology also (4) Hypertension Current Visit: Yes Status: Acute Plan to address problem: Management as per primary care. (5) MAITE (acute kidney injury) Current Visit: Yes Status: Acute Plan to address problem: Management as per primary care and nephrology.
[2017-08-20 12:32] LABS: Calcium 9.6 mg/dL (8.4-10.2)
[2017-08-20 12:33] LABS: Partial Thromboplastin Time 53.1 Sec. (24.2-36.6)
--- NOTE | 2017-08-20 12:40 | Post Operative Note ---
Date of procedure: 08/20/17 Pre-op diagnosis: Submassive pulmonary embolism Post-op diagnosis: same Findings: 20 mL contrast used Procedure: Bilateral EKOS catheter directed thrombolysis and pulmonary angiography with selection Anesthesia: local (w/ conscious sedation) Surgeon: SHANNON PORRAS Estimated blood loss: minimal Condition: stable Disposition: ICU
[2017-08-20] MEDS: NORCO 5/325 PO PRN (17:20)
--- NOTE | 2017-08-20 17:38 | Operative Report ---
Operative Report Operative Report: EXAM: 1. Ultrasound guided access of the right common femoral vein 2. Ultrasound guided access of the right common femoral vein 3. Selection of the right atrium, right ventricle, main pulmonary artery, and right main pulmonary artery 4. Selection of the right lower lobar pulmonary artery and a segmental branch of the right lower lobar pulmonary artery 5. Angiography of a segmental branch of the right lower lobar pulmonary artery 6. Fluoroscopic guided placement of a 106 cm x 12 cm infusion length EKOS thrombolytic catheter in the right lower lobar segmental pulmonary artery 7. Selection of the right atrium, right ventricle, main pulmonary artery, left main pulmonary artery, and left lobar pulmonary artery 8. Pressure measurements of the main pulmonary artery (51/20) - MAP 34 9. Selection and angiography of a lobar and segmental branch of the left lower lobar pulmonary artery 10. Fluoroscopic guided placement of a 106 cm x 12 cm infusion length EKOS thrombolytic catheter in the left lower lobar segmental pulmonary artery DATE: 08/20/17 TRUCK DRIVER: SHANNON PORRAS MD INDICATION: Submassive pulmonary embolism with right heart strain on echo with shortness of breath and troponin leak and elevated BNP. MEDICATIONS: Continuous cardiopulmonary monitoring was performed during this procedure. Please see nursing report for full details. DEVICES: 12 cm x 106 cm EKOS catheter placement in the left lower lobe segmental pulmonary artery 12 cm x 106 cm EKOS catheter placement in the right lower lobe segmental pulmonary artery CONTRAST: Please see nursing report. PROCEDURE: The risks, benefits, and alternatives were discussed; written informed consent was obtained. The patient was prepped and draped in a sterile fashion and both groins were prepped and draped in a sterile fashion. The right common femoral vein was patent on ultrasound evaluation. The right common femoral vein was assessed under ultrasound guidance, and a 21- gauge micropuncture needle was advanced into the right common femoral vein. 0.018 inch wire was advanced into the needle and into the inferior vena cava. Needle was exchanged for micropuncture transitional dilator. The right common femoral vein was assessed again under ultrasound guidance, and a 21-gauge micropuncture needle was advanced into the right common femoral vein. 0.018 inch wire was advanced into the needle and into the inferior vena cava. Needle was exchanged for micropuncture transitional dilator. Both access sites were then exchanged for 6 [place] Islander sheaths after 0.035 wire were passed into the inferior vena cava. Through the first right-sided sheath, a JR4 catheter was advanced over the Bentson wire and was used to successfully cannulated the right atrium. Then the catheter was used to select the right ventricle. Catheter was then used to select the main pulmonary artery. The catheter was then used to select the right lower lobe lobar branch and then a segmental and subsegmental branches. Digital angiography was performed confirming placement in a segmental branch of the right lower lobar pulmonary artery. The right lower pulmonary artery segmental branches had near occlusive thrombus within it. Escobar wire was advanced into the vessel and catheter was exchanged for a 6 [place] EKOS thrombolytic catheter. Wire was then exchanged for the EKOS wire. Contrast was injected to the thrombolytic catheter confirming placement in a segmental branch of the right lower lobe pulmonary artery. Thrombolytic catheter was flushed with saline. EKOS catheter was primed with 4 mg of TPA. This sheath was flushed and then primed with 1500 units of heparin. Through the second right-sided sheath, a JR4 catheter was advanced over the Bentson wire and was used to successfully cannulated the right atrium. Then the catheter was used to select the right ventricle. Catheter was then used to select the main pulmonary artery. Pressure readings were obtained demonstrating 51/20 (MAP 34). The catheter was then used to select the left main pulmonary artery and the left lower lobe lobar pulmonary artery. Digital angiography was performed demonstrating a nonocclusive thrombus in the left lower lobar pulmonary artery extending into segmental branches. The catheter was then used to select the left lower lobe segmental and subsegmental branches. Digital angiography was performed confirming placement in a segmental branch of the left lower lobar pulmonary artery. Escobar wire was advanced into the vessel and catheter was exchanged for a 6 [place] EKOS thrombolytic catheter. Wire was then exchanged for the EKOS wire. Contrast was injected to the thrombolytic catheter confirming placement in a segmental branch of the left lower lobe pulmonary artery. Thrombolytic catheter was flushed with saline. EKOS catheter was primed with 4 mg of TPA. This sheath was flushed and then primed with 1500 units of heparin. EKOS catheters were secured in 2-0 Ethilon sutures were used to secure this sheath. Steri-Strips were used to connect the catheters with the sheaths. The EKOS catheters were secured in a sterile fashion with multiple Tegaderms and 4 x 4's. FINDINGS: 1. Please see procedure note above IMPRESSION: Successful pulmonary angiograms and pulmonary artery selections for thrombolytic therapy. Successful placement of EKOS catheters in the right lower lobe segmental/ subsegmental pulmonary artery and left lower lobe segmental/subsegmental pulmonary artery.
[2017-08-20 19:28] LABS: Basophils # (Auto) 0.1 K/mm3 (0.0-0.1); Basophils % (Auto) 0.9 % (0.0-1.8); Eosinophils # (Auto) 0.2 K/mm3 (0.0-0.4); Eosinophils % (Auto) 3.1 % (0.0-4.3); Hemoglobin 14.9 gm/dl (11.8-15.2); Lymphocytes # (Auto) 2.6 K/mm3 (1.2-5.4); Mean Corpuscular HGB Conc 34 % (32-34); Mean Corpuscular Hemoglobin 31 pg (28-32); Mean Corpuscular Volume 91 fl (84-94); Monocytes # (Auto) 0.8 K/mm3 (0.0-0.8); Monocytes % (Auto) 10.5 % (0.0-7.3); Platelet Count 178 K/mm3 (140-440); Red Blood Count 4.84 M/mm3 (3.65-5.03); Red Cell Distribution Width 13.6 % (13.2-15.2)
[2017-08-20 19:49] LABS: Heparin anti-factor XA 0.3 U.I./ml (0.3-0.7)
[2017-08-20] MEDS: DILAUDID IV PRN (20:29)
[2017-08-20 23:22] LABS: Basophils # (Auto) 0.1 K/mm3 (0.0-0.1); Basophils % (Auto) 1.3 % (0.0-1.8); Eosinophils # (Auto) 0.3 K/mm3 (0.0-0.4); Eosinophils % (Auto) 4.2 % (0.0-4.3); Lymphocytes # (Auto) 3.1 K/mm3 (1.2-5.4); Lymphocytes % (Auto) 43.9 % (13.4-35.0); Mean Corpuscular HGB Conc 33 % (32-34); Mean Corpuscular Hemoglobin 31 pg (28-32); Mean Corpuscular Volume 91 fl (84-94); Monocytes # (Auto) 0.7 K/mm3 (0.0-0.8); Monocytes % (Auto) 9.9 % (0.0-7.3); Platelet Count 169 K/mm3 (140-440); Red Blood Count 4.92 M/mm3 (3.65-5.03); Red Cell Distribution Width 14.1 % (13.2-15.2)
[2017-08-20 23:41] LABS: Heparin anti-factor XA 0.21 U.I./ml (0.3-0.7)
[2017-08-21] MEDS: KCL 10MEQ/100ML 10 MEQ/100 ML BAG IV SCH ×2 (02:18→03:00)
[2017-08-21] MEDS ORDERED: K-DUR PO ONE (03:18)
[2017-08-21 07:23] LABS: Basophils # (Auto) 0.1 K/mm3 (0.0-0.1); Basophils % (Auto) 0.9 % (0.0-1.8); Eosinophils # (Auto) 0.3 K/mm3 (0.0-0.4); Eosinophils % (Auto) 4.5 % (0.0-4.3); Hematocrit 42.7 % (35.5-45.6); Hemoglobin 14.5 gm/dl (11.8-15.2); Lymphocytes # (Auto) 2.2 K/mm3 (1.2-5.4); Mean Corpuscular HGB Conc 34 % (32-34); Mean Corpuscular Hemoglobin 31 pg (28-32); Mean Corpuscular Volume 91 fl (84-94); Monocytes # (Auto) 0.7 K/mm3 (0.0-0.8); Monocytes % (Auto) 10.5 % (0.0-7.3); Platelet Count 150 K/mm3 (140-440); Red Blood Count 4.69 M/mm3 (3.65-5.03); Red Cell Distribution Width 13.9 % (13.2-15.2)
[2017-08-21 07:31] LABS: Fibrinogen 317 mg/dl (211-480)
[2017-08-21 07:36] LABS: Heparin anti-factor XA < 0.10 U.I./ml (0.3-0.7)
[2017-08-21 07:52] LABS: BUN/Creatinine Ratio 19; Blood Urea Nitrogen 21 mg/dL (9-20); Calcium 8.8 mg/dL (8.4-10.2); Hemolysis Index 74
--- NOTE | 2017-08-21 11:29 | Progress Note ---
Assessment and Plan Syncope Acute pulmonary embolism with RV dysfunction status post bilateral ekos Cor pulmonale Smoker Non-ST elevation CO type II Hypertension Acute renal insufficiency improving rec: Anticoagulation as per the primary team patient has pulmonary hypertension continue current management Subjective Date of service: 08/21/17 Principal diagnosis: acute pe Interval history: Patient laying in the bed without any chest pain or shortness of breath Objective Vital Signs Temp Pulse Pulse Resp BP Pulse Ox 08/21/17 11:10 76 15 127/83 94 08/21/17 11:00 68 12 127/83 94 08/21/17 10:50 75 23 127/83 95 08/21/17 10:40 77 12 127/83 93 08/21/17 10:30 72 16 127/83 96 08/21/17 10:20 75 15 132/104 96 08/21/17 10:10 70 9 L 132/66 95 08/21/17 10:06 95 08/21/17 10:00 74 15 114/73 94 08/21/17 09:50 74 28 H 114/73 86 08/21/17 09:40 76 24 107/69 92 08/21/17 09:30 78 24 107/69 93 08/21/17 09:20 85 24 104/66 90 08/21/17 09:10 75 25 H 142/98 91 08/21/17 09:00 85 24 142/98 90 08/21/17 08:50 80 20 142/98 92 08/21/17 08:40 77 24 126/82 93 08/21/17 08:30 75 9 L 126/82 94 08/21/17 08:20 78 14 125/87 94 08/21/17 08:10 79 29 H 130/77 88 08/21/17 08:00 98.5 F 77 26 H 130/77 92 08/21/17 07:50 76 26 H 138/85 90 08/21/17 07:40 74 27 H 131/80 93 08/21/17 07:30 77 25 H 131/80 95 08/21/17 07:20 81 12 109/79 94 08/21/17 07:10 79 21 120/85 92 08/21/17 07:00 78 14 120/85 95 08/21/17 06:50 77 20 111/87 95 08/21/17 06:40 78 18 114/84 95 07/15/18 06:30 75 12 114/84 96 /15/18 06:20 73 23 108/75 94 07/15/18 06:10 71 15 117/75 98 08/21/18 06:00 76 20 117/75 96 /15/18 05:50 80 18 115/84 91 1518 05:40 81 23 138/57 92 15/18 05:30 79 20 119/86 93 15/18 05:20 78 22 119/86 93 15/18 05:10 81 25 H 119/86 90 15/18 05:00 89 25 H 119/86 91 15/18 04:50 82 17 119/86 97 15/18 04:40 87 26 H 121/77 94 15/18 04:30 89 21 121/77 94 15/18 04:20 88 26 H 129/93 94 15/18 04:10 81 28 H 120/88 92 18 04:00 98.8 F 74 24 120/88 96 1518 03:50 76 13 115/87 94 15/18 03:40 77 9 L 109/79 93 /15/18 03:30 78 10 L 109/79 92 /15/18 03:20 78 13 110/83 92 15/18 03:10 75 18 120/89 92 15/18 03:00 76 17 120/89 93 /15/18 02:50 73 11 L 113/89 91 15/18 02:40 87 14 113/89 90 1518 02:30 81 18 113/89 93 15/18 02:20 78 20 107/81 95 15/18 02:10 82 14 110/74 95 15/18 02:00 89 16 110/74 94 1518 01:50 87 22 118/83 94 18 01:40 84 26 H 110/75 92 15/18 01:30 88 22 115/86 94 1518 01:20 80 20 115/86 92 15/18 00:00 100 18 23:57 98.9 F 08/20/17 22:45 81 18 22:00 100 07/14/18 21:26 94 07/14/18 20:00 98.7 F 100 07/14/18 19:00 91 H 23 111/79 91 07/14/18 18:50 89 29 H 108/75 90 07/14/18 18:40 90 13 111/76 91 07/14/18 18:30 90 30 H 111/76 93 07/14/18 18:20 89 28 H 118/75 91 07/14/18 18:10 94 H 29 H 113/81 89 07/14/18 18:00 94 H 27 H 107/73 86 07/14/18 17:50 92 H 24 107/73 94 07/14/18 17:40 92 H 29 H 112/79 07/14/18 17:30 88 21 112/79 96 07/14/18 17:20 90 19 105/74 95 07/14/18 17:10 92 H 20 109/76 95 07/14/18 17:00 90 18 109/76 94 07/14/18 16:50 94 H 16 113/63 94 07/14/18 16:40 95 H 18 102/40 95 07/14/18 16:30 89 9 L 104/74 95 07/14/18 16:20 96 H 18 110/77 07/14/18 16:10 101 H 13 110/77 91 07/14/18 16:00 99.3 F 96 H 15 110/77 94 07/14/18 15:50 110 H 28 H 93/59 94 07/14/18 15:40 96 H 15 93/59 93 07/14/18 15:30 96 H 19 101/75 91 07/14/18 15:20 93 H 27 H 93/59 93 07/14/18 15:10 94 H 31 H 109/75 94 07/14/18 15:00 100 H 21 91/60 92 07/14/18 14:50 93 H 30 H 91/60 93 07/14/18 14:40 86 26 H 128/70 94 07/14/18 14:30 82 20 99/72 93 07/14/18 14:20 84 16 99/72 96 07/14/18 14:10 82 25 H 99/72 95 07/14/18 14:00 84 17 99/68 94 07/14/18 13:50 84 16 99/68 93 07/14/18 13:40 83 25 H 97/58 94 08/20/17 13:30 82 22 117/21 95 08/20/17 13:20 79 15 117/21 97 08/20/17 13:10 82 11 L 100/75 96 08/20/17 13:00 82 86 15 105/75 97 08/20/17 12:50 82 19 105/75 94 08/20/17 12:44 98.8 F 08/20/17 12:40 84 20 99/66 08/20/17 12:36 84 19 - Physical Examination General: No Apparent Distress HEENT: Positive: PERRL, Mucus Membranes Moist Neck: Positive: neck supple, trachea midline Cardiac: Positive: Reg Rate and Rhythm Lungs: Positive: clear to auscultation Neuro: Positive: Grossly Intact Abdomen: Positive: Soft, Active Bowel Sounds. Negative: Tender, Distended Skin: Positive: Clear Incision: Cardiac Cath Site Musculoskeletal: No Pain, Normal Range of Motion Extremities: Present: normal. Absent: edema - Labs and Meds Coagulation 08/20/17 Range/Units 11:49 PT 13.8 (12.2-14.9) Sec. INR 1.01 (0.87-1.13) APTT 53.1 H (24.2-36.6) Sec. CBC 08/20/17 08/20/17 08/20/17 Range/Units 11:49 18:46 22:55 WBC 8.1 7.3 7.2 (4.5-11.0) K/mm3 RBC 4.78 4.84 4.92 (3.65-5.03) M/mm3 Hgb 14.7 14.9 15.0 (11.8-15.2) gm/dl Hct 43.3 44.0 45.0 (35.5-45.6) % Plt Count 191 178 169 (140-440) K/mm3 Lymph # 2.5 2.6 3.1 (1.2-5.4) K/mm3 [place] # 0.8 0.8 0.7 (0.0-0.8) K/mm3 Eos # 0.1 0.2 0.3 (0.0-0.4) K/mm3 Baso # 0.1 0.1 0.1 (0.0-0.1) K/mm3 07/15/18 Range/Units 06:12 WBC 7.0 (4.5-11.0) K/mm3 RBC 4.69 (3.65-5.03) M/mm3 Hgb 14.5 (11.8-15.2) gm/dl Hct 42.7 (35.5-45.6) % Plt Count 150 (140-440) K/mm3 Lymph # 2.2 (1.2-5.4) K/mm3 [place] # 0.7 (0.0-0.8) K/mm3 Eos # 0.3 (0.0-0.4) K/mm3 Baso # 0.1 (0.0-0.1) K/mm3 Comprehensive Metabolic Panel 08/20/17 08/21/17 Range/Units 11:49 06:12 Sodium 141 140 (137-145) mmol/L Potassium 3.2 L 4.2 D (3.6-5.0) mmol/L Chloride 98.4 100.7 (98-107) mmol/L Carbon Dioxide 26 23 (22-30) mmol/L BUN 22 H 21 H (9-20) mg/dL Creatinine 1.5 1.1 (0.8-1.5) mg/dL Glucose 98 93 (75-100) mg/dL Calcium 9.6 8.8 (8.4-10.2) mg/dL - Imaging and Cardiology EKG: image reviewed Echo: report reviewed (normal LV function mild mitral regurgitation no aortic stenosis right ventricle is severely dilated and dysfunctional with RV pressure overload noted) - Telemetry EKG Rhythm: Sinus Rhythm
--- NOTE | 2017-08-21 11:30 | Progress Note ---
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 Vitals, labs, medications, chart and imaging reviewed. Denies any chest pain, no shortness of breath. wants to know when he can eat and when he can move around. No acute overnight events. Discussed with RT and RN Objective - Exam Narrative Exam: Gen. appearance: Patient lying in bed, no apparent distress HEENT: Normocephalic, atraumatic, pupils equally round and reactive to light, extraocular movement intact, and no sclericterus,. No JVD or thyromegaly or nodule,neck supple, no carotid bruit ,mucous membranes moist, no exudate or erythema Heart: S1, S2, regular rate and rhythm Lungs: Clear bilaterally, breathing comfortable Abdomen: Positive bowel sounds, non-tender, nondistended, no organomegaly Extremity:no edema cyanosis, clubbing Skin: no rash, dry, warm Neuro: Oriented 3, cranial nerves II-12 intact, speech is fluent, motor and sensory intact Vital Signs - 12hr 08/20/17 08/21/17 08/21/17 23:57 00:00 01:20 Temperature 98.9 F Pulse Rate 80 Respiratory 20 Rate Blood Pressure 115/86 O2 Sat by Pulse 100 92 Oximetry 08/21/17 08/21/17 08/21/17 01:30 01:40 01:50 Temperature Pulse Rate 88 84 87 Respiratory 22 26 H 22 Rate Blood Pressure 115/86 110/75 118/83 O2 Sat by Pulse 94 92 94 Oximetry 08/21/17 08/21/17 08/21/17 02:00 02:10 02:20 Temperature Pulse Rate 89 82 78 Respiratory 16 14 20 Rate Blood Pressure 110/74 110/74 107/81 O2 Sat by Pulse 94 95 95 Oximetry 08/21/17 08/21/17 08/21/17 02:30 02:40 02:50 Temperature Pulse Rate 81 87 73 Respiratory 18 14 11 L Rate Blood Pressure 113/89 113/89 113/89 O2 Sat by Pulse 93 90 91 Oximetry 08/21/17 08/21/17 08/21/17 03:00 03:10 03:20 Temperature Pulse Rate 76 75 78 Respiratory 17 18 13 Rate Blood Pressure 120/89 120/89 110/83 O2 Sat by Pulse 93 92 92 Oximetry 08/21/17 08/21/17 08/21/17 03:30 03:40 03:50 Temperature Pulse Rate 78 77 76 Respiratory 10 L 9 L 13 Rate Blood Pressure 109/79 109/79 115/87 O2 Sat by Pulse 92 93 94 Oximetry 08/21/17 08/21/17 08/21/17 04:00 04:10 04:20 Temperature 98.8 F Pulse Rate 74 81 88 Respiratory 24 28 H 26 H Rate Blood Pressure 120/88 120/88 129/93 O2 Sat by Pulse 96 92 94 Oximetry 08/21/17 08/21/17 08/21/17 04:30 04:40 04:50 Temperature Pulse Rate 89 87 82 Respiratory 21 26 H 17 Rate Blood Pressure 121/77 121/77 119/86 O2 Sat by Pulse 94 94 97 Oximetry 08/21/17 08/21/17 08/21/17 05:00 05:10 05:20 Temperature Pulse Rate 89 81 78 Respiratory 25 H 25 H 22 Rate Blood Pressure 119/86 119/86 119/86 O2 Sat by Pulse 91 90 93 Oximetry 08/21/17 08/21/17 08/21/17 05:30 05:40 05:50 Temperature Pulse Rate 79 81 80 Respiratory 20 23 18 Rate Blood Pressure 119/86 138/57 115/84 O2 Sat by Pulse 93 92 91 Oximetry 08/21/17 08/21/17 08/21/17 06:00 06:10 06:20 Temperature Pulse Rate 76 71 73 Respiratory 20 15 23 Rate Blood Pressure 117/75 117/75 108/75 O2 Sat by Pulse 96 98 94 Oximetry 08/21/17 08/21/17 08/21/17 06:30 06:40 06:50 Temperature Pulse Rate 75 78 77 Respiratory 12 18 20 Rate Blood Pressure 114/84 114/84 111/87 O2 Sat by Pulse 96 95 95 Oximetry 08/21/17 08/21/1708/21/18 07:00 07:10 07:20 Temperature Pulse Rate 78 79 81 Respiratory 14 21 12 Rate Blood Pressure 120/85 120/85 109/79 O2 Sat by Pulse 95 92 94 Oximetry 08/21/17 08/21/17 08/21/17 07:30 07:40 07:50 Temperature Pulse Rate 77 74 76 Respiratory 25 H 27 H 26 H Rate Blood Pressure 131/80 131/80 138/85 O2 Sat by Pulse 95 93 90 Oximetry 08/21/17 08/21/17 08/21/17 08:00 08:10 08:20 Temperature 98.5 F Pulse Rate 77 79 78 Respiratory 26 H 29 H 14 Rate Blood Pressure 130/77 130/77 125/87 O2 Sat by Pulse 92 88 94 Oximetry 08/21/17 08/21/17 08/21/17 08:30 08:40 08:50 Temperature Pulse Rate 75 77 80 Respiratory 9 L 24 20 Rate Blood Pressure 126/82 126/82 142/98 O2 Sat by Pulse 94 93 92 Oximetry 08/21/17 08/21/17 08/21/17 09:00 09:10 09:20 Temperature Pulse Rate 85 75 85 Respiratory 24 25 H 24 Rate Blood Pressure 142/98 142/98 104/66 O2 Sat by Pulse 90 91 90 Oximetry 08/21/17 08/21/17 08/21/17 09:30 09:40 09:50 Temperature Pulse Rate 78 76 74 Respiratory 24 24 28 H Rate Blood Pressure 107/69 107/69 114/73 O2 Sat by Pulse 93 92 86 Oximetry 08/21/17 08/21/17 08/21/17 10:00 10:06 10:10 Temperature Pulse Rate 74 70 Respiratory 15 9 L Rate Blood Pressure 114/73 132/66 O2 Sat by Pulse 94 95 95 Oximetry 08/21/17 08/21/17 08/21/17 10:20 10:30 10:40 Temperature Pulse Rate 75 72 77 Respiratory 15 16 12 Rate Blood Pressure 132/104 127/83 127/83 O2 Sat by Pulse 96 96 93 Oximetry 08/21/17 08/21/17 08/21/17 10:50 11:00 11:10 Temperature Pulse Rate 75 68 76 Respiratory 23 12 15 Rate Blood Pressure 127/83 127/83 127/83 O2 Sat by Pulse 95 94 94 Oximetry Constitutional: no acute distress, alert Eyes: non-icteric ENT: oropharynx moist Neck: supple, no lymphadenopathy, no JVD Effort: normal Ascultation: Bilateral: clear, diminished breath sounds Cardiovascular: regular rate and rhythm, other (S1, S2, no murmurs, gallops or rubs) Gastrointestinal: normoactive bowel sounds, non-tender, non-distended Integumentary: normal Extremities: no cyanosis, no edema, pink and warm, pulses normal, no ischemia or petechiae, other (Right groin EKOS) Neurologic: normal mental status, non-focal exam, pupils equal and round, CN II- XII normal, motor strength normal and Psychiatric: mood appropriate, affect normal CBC and BMP: 08/21/17 15:13 08/21/17 06:12 ABG, PT/INR, D-dimer: PT/INR, D-dimer PT 13.8 Sec. (12.2-14.9) 08/20/17 11:49 INR 1.01 (0.87-1.13) 08/20/17 11:49 Abnormal lab findings: Abnormal Labs 08/19/17 08/19/17 08/19/17 21:30 21:30 23:08 RBC 5.51 H Hgb 16.9 H Hct 50.7 H Lymph % (Auto) [place] % (Auto) Eos % (Auto) Seg Neutrophils % 74.9 H APTT Heparin Anti-Xa Level Potassium Carbon Dioxide 21 L BUN Creatinine 1.7 H Glucose 137 H Calcium 11.0 H Total Creatine Kinase 281 H Troponin T 0.200 H* NT-Pro-B Natriuret Pep 3990 H 08/19/17 08/20/17 08/20/17 23:36 01:16 03:20 RBC Hgb 16.2 H Hct 46.4 H Lymph % (Auto) [place] % (Auto) Eos % (Auto) Seg Neutrophils % APTT Heparin Anti-Xa Level Potassium Carbon Dioxide BUN Creatinine Glucose Calcium Total Creatine Kinase Troponin T 0.161 H* 0.143 H* NT-Pro-B Natriuret Pep 08/20/17 08/20/17 08/20/17 08:18 11:49 11:49 RBC Hgb 15.3 H Hct Lymph % (Auto) [place] % (Auto) 9.7 H Eos % (Auto) Seg Neutrophils % APTT 53.1 H Heparin Anti-Xa Level Potassium Carbon Dioxide BUN Creatinine Glucose Calcium Total Creatine Kinase Troponin T NT-Pro-B Natriuret Pep 08/20/17 08/20/17 08/20/17 11:49 18:46 22:55 RBC Hgb Hct Lymph % (Auto) 36.0 H 43.9 H [place] % (Auto) 10.5 H 9.9 H Eos % (Auto) Seg Neutrophils % APTT Heparin Anti-Xa Level Potassium 3.2 L Carbon Dioxide BUN 22 H Creatinine Glucose Calcium Total Creatine Kinase Troponin T NT-Pro-B Natriuret Pep 08/20/17 08/21/17 08/21/17 22:55 06:12 06:12 RBC Hgb Hct Lymph % (Auto) [place] % (Auto) 10.5 H Eos % (Auto) 4.5 H Seg Neutrophils % APTT Heparin Anti-Xa Level 0.21 L Potassium Carbon Dioxide BUN 21 H Creatinine Glucose Calcium Total Creatine Kinase Troponin T NT-Pro-B Natriuret Pep 08/21/17 06:12 RBC Hgb Hct Lymph % (Auto) [place] % (Auto) Eos % (Auto) Seg Neutrophils % APTT Heparin Anti-Xa Level < 0.10 L Potassium Carbon Dioxide BUN Creatinine Glucose Calcium Total Creatine Kinase Troponin T NT-Pro-B Natriuret Pep Critical care time in (mins) excluding proc time.: 31 Critical care attestation.: If time is entered above; I have spent that time in minutes in the direct care of this critically ill patient, excluding procedure time.
--- NOTE | 2017-08-21 11:52 | Progress Note ---
Assessment and Plan Syncope due to submassive PE Acute pulmonary embolism with RV strain status post EKOS Rt LE DVT Elevated troponin, due to acute PE Hypertension MAITE, improving Tobacco abuse - Status post catheter directed thrombolysis of pulmonary arteries - Plan to Remove thrombolytic catheters today, cont heparin drip. - will convert patient to oral anticoagulation tomorrow with Eliquis 10 mg PO BID x 7 days, then Eliquis 5 mg PO BID. - will transfer out off ICU following thrombolytic catheters removal - cont iv fluid, monitor renal function Subjective Date of service: 08/21/17 Principal diagnosis: acute pe Interval history: Pt seen and examined No acute event o/n no active bleeding Objective - Constitutional Vitals: Vital Signs - 12hr 08/20/17 08/21/17 08/21/17 23:57 00:00 01:20 Temperature 98.9 F Pulse Rate 80 Respiratory 20 Rate Blood Pressure 115/86 O2 Sat by Pulse 100 92 Oximetry 08/21/17 08/21/17 08/21/17 01:30 01:40 01:50 Temperature Pulse Rate 88 84 87 Respiratory 22 26 H 22 Rate Blood Pressure 115/86 110/75 118/83 O2 Sat by Pulse 94 92 94 Oximetry 08/21/17 08/21/17 08/21/17 02:00 02:10 02:20 Temperature Pulse Rate 89 82 78 Respiratory 16 14 20 Rate Blood Pressure 110/74 110/74 107/81 O2 Sat by Pulse 94 95 95 Oximetry 08/21/17 08/21/17 08/21/17 02:30 02:40 02:50 Temperature Pulse Rate 81 87 73 Respiratory 18 14 11 L Rate Blood Pressure 113/89 113/89 113/89 O2 Sat by Pulse 93 90 91 Oximetry 08/21/17 08/21/17 08/21/17 03:00 03:10 03:20 Temperature Pulse Rate 76 75 78 Respiratory 17 18 13 Rate Blood Pressure 120/89 120/89 110/83 O2 Sat by Pulse 93 92 92 Oximetry 08/21/17 08/21/17 08/21/17 03:30 03:40 03:50 Temperature Pulse Rate 78 77 76 Respiratory 10 L 9 L 13 Rate Blood Pressure 109/79 109/79 115/87 O2 Sat by Pulse 92 93 94 Oximetry 08/21/17 08/21/17 08/21/17 04:00 04:10 04:20 Temperature 98.8 F Pulse Rate 74 81 88 Respiratory 24 28 H 26 H Rate Blood Pressure 120/88 120/88 129/93 O2 Sat by Pulse 96 92 94 Oximetry 08/21/17 08/21/17 08/21/17 04:30 04:40 04:50 Temperature Pulse Rate 89 87 82 Respiratory 21 26 H 17 Rate Blood Pressure 121/77 121/77 119/86 O2 Sat by Pulse 94 94 97 Oximetry 08/21/17 08/21/17 08/21/17 05:00 05:10 05:20 Temperature Pulse Rate 89 81 78 Respiratory 25 H 25 H 22 Rate Blood Pressure 119/86 119/86 119/86 O2 Sat by Pulse 91 90 93 Oximetry 08/21/17 08/21/17 08/21/17 05:30 05:40 05:50 Temperature Pulse Rate 79 81 80 Respiratory 20 23 18 Rate Blood Pressure 119/86 138/57 115/84 O2 Sat by Pulse 93 92 91 Oximetry 08/21/17 08/21/17 08/21/17 06:00 06:10 06:20 Temperature Pulse Rate 76 71 73 Respiratory 20 15 23 Rate Blood Pressure 117/75 117/75 108/75 O2 Sat by Pulse 96 98 94 Oximetry 08/21/17 08/21/17 08/21/17 06:30 06:40 06:50 Temperature Pulse Rate 75 78 77 Respiratory 12 18 20 Rate Blood Pressure 114/84 114/84 111/87 O2 Sat by Pulse 96 95 95 Oximetry 08/21/17 08/21/17 08/21/17 07:00 07:10 07:20 Temperature Pulse Rate 78 79 81 Respiratory 14 21 12 Rate Blood Pressure 120/85 120/85 109/79 O2 Sat by Pulse 95 92 94 Oximetry 08/21/17 08/21/17 08/21/17 07:30 07:40 07:50 Temperature Pulse Rate 77 74 76 Respiratory 25 H 27 H 26 H Rate Blood Pressure 131/80 131/80 138/85 O2 Sat by Pulse 95 93 90 Oximetry 08/21/17 08/21/17 08/21/17 08:00 08:10 08:20 Temperature 98.5 F Pulse Rate 77 79 78 Respiratory 26 H 29 H 14 Rate Blood Pressure 130/77 130/77 125/87 O2 Sat by Pulse 92 88 94 Oximetry 08/21/17 08/21/17 08/21/17 08:30 08:40 08:50 Temperature Pulse Rate 75 77 80 Respiratory 9 L 24 20 Rate Blood Pressure 126/82 126/82 142/98 O2 Sat by Pulse 94 93 92 Oximetry 08/21/17 08/21/17 08/21/17 09:00 09:10 09:20 Temperature Pulse Rate 85 75 85 Respiratory 24 25 H 24 Rate Blood Pressure 142/98 142/98 104/66 O2 Sat by Pulse 90 91 90 Oximetry 08/21/17 08/21/17 08/21/17 09:30 09:40 09:50 Temperature Pulse Rate 78 76 74 Respiratory 24 24 28 H Rate Blood Pressure 107/69 107/69 114/73 O2 Sat by Pulse 93 92 86 Oximetry 08/21/17 08/21/17 08/21/17 10:00 10:06 10:10 Temperature Pulse Rate 74 70 Respiratory 15 9 L Rate Blood Pressure 114/73 132/66 O2 Sat by Pulse 94 95 95 Oximetry 08/21/17 08/21/17 08/21/17 10:20 10:30 10:40 Temperature Pulse Rate 75 72 77 Respiratory 15 16 12 Rate Blood Pressure 132/104 127/83 127/83 O2 Sat by Pulse 96 96 93 Oximetry 08/21/17 08/21/17 08/21/17 10:50 11:00 11:10 Temperature Pulse Rate 75 68 76 Respiratory 23 12 15 Rate Blood Pressure 127/83 127/83 127/83 O2 Sat by Pulse 95 94 94 Oximetry - Labs CBC & Chem 7: 08/21/17 15:13 08/21/17 06:12 Labs: Abnormal lab results 08/20/17 08/20/17 08/20/17 Range/Units 11:49 11:49 11:49 Lymph % (Auto) (13.4-35.0) % [place] % (Auto) 9.7 H (0.0-7.3) % Eos % (Auto) (0.0-4.3) % APTT 53.1 H (24.2-36.6) Sec. Heparin Anti-Xa Level (0.3-0.7) U.I./ml Potassium 3.2 L (3.6-5.0) mmol/L BUN 22 H (9-20) mg/dL 08/20/17 08/20/17 08/20/17 Range/Units 18:46 22:55 22:55 Lymph % (Auto) 36.0 H 43.9 H (13.4-35.0) % [place] % (Auto) 10.5 H 9.9 H (0.0-7.3) % Eos % (Auto) (0.0-4.3) % APTT (24.2-36.6) Sec. Heparin Anti-Xa Level 0.21 L (0.3-0.7) U.I./ml Potassium (3.6-5.0) mmol/L BUN (9-20) mg/dL 08/21/17 08/21/17 08/21/17 Range/Units 06:12 06:12 06:12 Lymph % (Auto) (13.4-35.0) % [place] % (Auto) 10.5 H (0.0-7.3) % Eos % (Auto) 4.5 H (0.0-4.3) % APTT (24.2-36.6) Sec. Heparin Anti-Xa Level < 0.10 L (0.3-0.7) U.I./ml Potassium (3.6-5.0) mmol/L BUN 21 H (9-20) mg/dL
[2017-08-21] MEDS ORDERED: NACL 0.9% 500 ML 1,000 ML ONE (12:12)
[2017-08-21] MEDS: NORCO 5/325 PO PRN ×2 (12:30→17:38)
--- NOTE | 2017-08-21 15:06 | Progress Note ---
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 Status post catheter directed thrombolysis of pulmonary arteries with excellent clinical response. Patient feels asymptomatic currently. Not tachycardic. Blood pressure stable. O2 sat stable. Removed thrombolytic catheters at bedside. In 2 hours, nurse can remove venous sheaths and restart heparin drip. In 4 hours, patient can ambulate. Can convert patient to oral anticoagulation tomorrow. Recommend Eliquis 10 mg PO BID x 7 days, then Eliquis 5 mg PO BID. Recommend duration of therapy for at least 6 months. 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 Can consider transition after 6 months from Eliquis 5 mg PO BID to Eliquis 2.5 mg PO BID. Subjective Date of service: 08/21/17 Principal diagnosis: acute pe Interval history: Doing well. Breathing better. Feels back to baseline. Moving around in bed despite discussion with patient to keep flat. O2 sat good. Blood pressure good. Not tachycardic. Removed thrombolytic catheters at bedside. In 2 hours, sheaths can be removed. At that time, heparin drip will be restarted. 4 hours for sheath removal, patient can walk. Discussed with nurse at bedside. Objective - Constitutional Vitals: Vital Signs - 12hr 08/21/17 08/21/17 08/21/17 03:10 03:20 03:30 Temperature Pulse Rate 75 78 78 Respiratory 18 13 10 L Rate Blood Pressure 120/89 110/83 109/79 O2 Sat by Pulse 92 92 92 Oximetry 08/21/17 08/21/17 08/21/17 03:40 03:50 04:00 Temperature 98.8 F Pulse Rate 77 76 74 Respiratory 9 L 13 24 Rate Blood Pressure 109/79 115/87 120/88 O2 Sat by Pulse 93 94 96 Oximetry 08/21/17 08/21/17 08/21/17 04:10 04:20 04:30 Temperature Pulse Rate 81 88 89 Respiratory 28 H 26 H 21 Rate Blood Pressure 120/88 129/93 121/77 O2 Sat by Pulse 92 94 94 Oximetry 0708/21/17 08/21/17 04:40 04:50 05:00 Temperature Pulse Rate 87 82 89 Respiratory 26 H 17 25 H Rate Blood Pressure 121/77 119/86 119/86 O2 Sat by Pulse 94 97 91 Oximetry 08/21/17 08/21/17 08/21/17 05:10 05:20 05:30 Temperature Pulse Rate 81 78 79 Respiratory 25 H 22 20 Rate Blood Pressure 119/86 119/86 119/86 O2 Sat by Pulse 90 93 93 Oximetry 08/21/17 08/21/17 08/21/17 05:40 05:50 06:00 Temperature Pulse Rate 81 80 76 Respiratory 23 18 20 Rate Blood Pressure 138/57 115/84 117/75 O2 Sat by Pulse 92 91 96 Oximetry 08/21/17 08/21/17 08/21/17 06:10 06:20 06:30 Temperature Pulse Rate 71 73 75 Respiratory 15 23 12 Rate Blood Pressure 117/75 108/75 114/84 O2 Sat by Pulse 98 94 96 Oximetry 08/21/17 08/21/17 08/21/17 06:40 06:50 07:00 Temperature Pulse Rate 78 77 78 Respiratory 18 20 14 Rate Blood Pressure 114/84 111/87 120/85 O2 Sat by Pulse 95 95 95 Oximetry 08/21/17 08/21/17 08/21/17 07:10 07:20 07:30 Temperature Pulse Rate 79 81 77 Respiratory 21 12 25 H Rate Blood Pressure 120/85 109/79 131/80 O2 Sat by Pulse 92 94 95 Oximetry 08/21/17 08/21/17 08/21/17 07:40 07:50 08:00 Temperature 98.5 F Pulse Rate 74 76 77 Respiratory 27 H 26 H 26 H Rate Blood Pressure 131/80 138/85 130/77 O2 Sat by Pulse 93 90 92 Oximetry 08/21/17 08/21/17 08/21/17 08:10 08:20 08:30 Temperature Pulse Rate 79 78 75 Respiratory 29 H 14 9 L Rate Blood Pressure 130/77 125/87 126/82 O2 Sat by Pulse 88 94 94 Oximetry 08/21/17 08/21/17 08/21/17 08:40 08:50 09:00 Temperature Pulse Rate 77 80 85 Respiratory 24 20 24 Rate Blood Pressure 126/82 142/98 142/98 O2 Sat by Pulse 93 92 90 Oximetry 08/21/17 08/21/17 08/21/17 09:10 09:20 09:30 Temperature Pulse Rate 75 85 78 Respiratory 25 H 24 24 Rate Blood Pressure 142/98 104/66 107/69 O2 Sat by Pulse 91 90 93 Oximetry 08/21/17 08/21/17 08/21/17 09:40 09:50 10:00 Temperature Pulse Rate 76 74 74 Respiratory 24 28 H 15 Rate Blood Pressure 107/69 114/73 114/73 O2 Sat by Pulse 92 86 94 Oximetry 08/21/17 08/21/17 08/21/17 10:06 10:10 10:20 Temperature Pulse Rate 70 75 Respiratory 9 L 15 Rate Blood Pressure 132/66 132/104 O2 Sat by Pulse 95 95 96 Oximetry 08/21/17 08/21/17 08/21/17 10:30 10:40 10:50 Temperature Pulse Rate 72 77 75 Respiratory 16 12 23 Rate Blood Pressure 127/83 127/83 127/83 O2 Sat by Pulse 96 93 95 Oximetry 08/21/17 08/21/17 08/21/17 11:00 11:10 11:20 Temperature Pulse Rate 68 76 74 Respiratory 12 15 14 Rate Blood Pressure 127/83 127/83 127/83 O2 Sat by Pulse 94 94 95 Oximetry 08/21/17 08/21/17 08/21/17 11:30 11:40 11:50 Temperature Pulse Rate 73 76 71 Respiratory 13 28 H 15 Rate Blood Pressure 127/83 127/83 127/83 O2 Sat by Pulse 95 95 96 Oximetry 08/21/17 08/21/17 12:00 12:10 Temperature 98.6 F Pulse Rate 77 74 Respiratory 10 L 12 Rate Blood Pressure 127/83 127/83 O2 Sat by Pulse 96 96 Oximetry General appearance: Present: no acute distress - EENT Eyes: EOM intact, irregular pupil - Respiratory Respiratory effort: normal Extremities: normal temperature, normal color - Gastrointestinal General gastrointestinal: Present: soft - Psychiatric Psychiatric: appropriate mood/affect, cooperative - Labs CBC & Chem 7: 08/21/17 06:12 08/21/17 06:12 Labs: Abnormal lab results 08/20/17 08/20/17 08/20/17 Range/Units 18:46 22:55 22:55 Lymph % (Auto) 36.0 H 43.9 H (13.4-35.0) % [facility] % (Auto) 10.5 H 9.9 H (0.0-7.3) % Eos % (Auto) (0.0-4.3) % Heparin Anti-Xa Level 0.21 L (0.3-0.7) U.I./ml BUN (9-20) mg/dL 08/21/17 08/21/17 08/21/17 Range/Units 06:12 06:12 06:12 Lymph % (Auto) (13.4-35.0) % [facility] % (Auto) 10.5 H (0.0-7.3) % Eos % (Auto) 4.5 H (0.0-4.3) % Heparin Anti-Xa Level < 0.10 L (0.3-0.7) U.I./ml BUN 21 H (9-20) mg/dL
[2017-08-21 15:42] LABS: Hematocrit 42.4 % (35.5-45.6); Hemoglobin 14.2 gm/dl (11.8-15.2)
[2017-08-21] MEDS: SODIUM CHLORIDE FLUSH SYRINGE 10 ML IV SCH ×3 (15:59→21:29)
[2017-08-21] MEDS: HEPARIN/ 0.45% NACL-25,000 UNIT/500 ML 25,000 UNIT/500 ML BAG IV SCH ×2 (16:03→21:28)
[2017-08-21] MEDS: DILAUDID IV PRN ×2 (16:06→21:28)
[2017-08-21 18:54] LABS: INR 0.99 (0.87-1.13)
[2017-08-21 19:04] LABS: Partial Thromboplastin Time 66.7 Sec. (24.2-36.6)
[2017-08-22] MEDS: DILAUDID IV PRN ×3 (05:04→18:53)
[2017-08-22 07:02] LABS: BUN/Creatinine Ratio 15; Blood Urea Nitrogen 16 mg/dL (9-20); Calcium 8.5 mg/dL (8.4-10.2); Hemolysis Index 8
--- NOTE | 2017-08-22 09:36 | Progress Note ---
Assessment and Plan Assessment: Syncope Acute pulmonary embolism with RV dysfunction status post bilateral ekos Acute RLE DVT Cor pulmonale Non-ST elevation PR type II Hypertension Acute renal insufficiency - improving Pulmonary HTN Tobacco use Plan: Anticoagulation as per the primary team patient. Currently stable cardiac status. Pt may tx out of CCU to telemetry from cardiology standpoint. Assessment and plan reviewed with pt at bedside. The patient has been seen in conjunction with Dr. Karla Pulido who agrees with the assessment and plan of care. Subjective Date of service: 08/22/17 Principal diagnosis: acute pe Interval history: pt resting comfortably in bed, no current cardiac complaints. heparin gtt infusing. Objective Last Vital Signs Temp 98.4 F 08/22/17 04:00 Pulse 64 08/22/17 06:00 Resp 18 08/22/17 06:00 BP 109/77 08/22/17 06:00 Pulse Ox 97 08/22/17 08:50 - Physical Examination General: No Apparent Distress HEENT: Positive: PERRL, Mucus Membranes Moist Neck: Positive: neck supple, trachea midline Cardiac: Positive: Reg Rate and Rhythm, S1/S2 Lungs: Positive: clear to auscultation Neuro: Positive: Grossly Intact Abdomen: Positive: Soft, Active Bowel Sounds. Negative: Tender, Distended Skin: Positive: Clear Incision: Cardiac Cath Site Musculoskeletal: No Pain, Normal Range of Motion Extremities: Present: normal. Absent: edema - Labs and Meds Coagulation 08/21/17 Range/Units 18:35 PT 13.6 (12.2-14.9) Sec. INR 0.99 (0.87-1.13) APTT 66.7 H* (24.2-36.6) Sec. CBC 08/21/17 Range/Units 15:13 Hgb 14.2 (11.8-15.2) gm/dl Hct 42.4 (35.5-45.6) % Plt Count 143 (140-440) K/mm3 Comprehensive Metabolic Panel 08/22/17 Range/Units 05:16 Sodium 144 (137-145) mmol/L Potassium 3.5 L (3.6-5.0) mmol/L Chloride 104.8 (98-107) mmol/L Carbon Dioxide 26 (22-30) mmol/L BUN 16 (9-20) mg/dL Creatinine 1.1 (0.8-1.5) mg/dL Glucose 98 (75-100) mg/dL Calcium 8.5 (8.4-10.2) mg/dL - Imaging and Cardiology EKG: image reviewed Echo: report reviewed (normal LV function mild mitral regurgitation no aortic stenosis right ventricle is severely dilated and dysfunctional with RV pressure overload noted) - Telemetry EKG Rhythm: Sinus Rhythm
--- NOTE | 2017-08-22 10:27 | Progress Note ---
Assessment and Plan Patient is doing well following lysis of this pulmonary embolism. He will need to be placed on oral anticoagulation for at least 6 months. Would recommend Eliquis. Subjective Date of service: 08/22/17 Principal diagnosis: acute pe Interval history: Patient status post pulmonary EKOS and removal. He is doing well satting 98% on room air. No complaints of chest pain. Objective - Constitutional Vitals: Vital Signs - 12hr 08/21/17 08/21/17 08/21/17 22:30 23:00 23:28 Temperature Pulse Rate 68 68 69 Respiratory 12 19 18 Rate Blood Pressure 110/71 112/73 112/73 O2 Sat by Pulse 95 95 94 Oximetry 08/21/17 08/22/17 08/22/17 23:51 00:00 01:00 Temperature 98.7 F Pulse Rate 69 65 63 Respiratory 23 26 H Rate Blood Pressure 111/69 106/75 O2 Sat by Pulse 98 90 Oximetry 08/22/17 08/22/17 08/22/17 02:00 02:30 03:00 Temperature Pulse Rate 61 65 62 Respiratory 19 18 17 Rate Blood Pressure 106/75 103/70 117/78 O2 Sat by Pulse 93 98 96 Oximetry 08/22/17 08/22/17 08/22/17 03:30 04:00 05:00 Temperature 98.4 F Pulse Rate 56 L 63 62 Respiratory 19 17 17 Rate Blood Pressure 97/54 O2 Sat by Pulse 98 97 98 Oximetry 08/22/17 08/22/17 08/22/17 05:30 06:00 06:10 Temperature Pulse Rate 61 64 57 L Respiratory 14 18 18 Rate Blood Pressure 112/61 109/77 112/61 O2 Sat by Pulse 96 91 96 Oximetry 08/22/17 08/22/17 08/22/17 06:20 06:30 06:40 Temperature Pulse Rate 61 59 L 59 L Respiratory 19 18 15 Rate Blood Pressure 112/61 112/61 112/61 O2 Sat by Pulse 95 97 94 Oximetry 08/22/17 08/22/17 08/22/17 06:50 07:00 07:10 Temperature Pulse Rate 59 L 62 59 L Respiratory 19 20 15 Rate Blood Pressure 112/61 112/61 112/61 O2 Sat by Pulse 93 93 94 Oximetry 08/22/17 08/22/17 08/22/17 07:20 07:30 07:40 Temperature Pulse Rate 61 59 L 59 L Respiratory 17 20 13 Rate Blood Pressure 112/61 112/61 112/61 O2 Sat by Pulse 94 97 96 Oximetry 08/22/17 08/22/17 08/22/17 07:50 08:00 08:10 Temperature Pulse Rate 56 L 61 60 Respiratory 18 15 19 Rate Blood Pressure 112/61 122/87 122/87 O2 Sat by Pulse 97 97 96 Oximetry 08/22/17 08/22/17 08/22/17 08:20 08:30 08:40 Temperature Pulse Rate 56 L 54 L 68 Respiratory 17 13 14 Rate Blood Pressure 122/87 122/87 122/87 O2 Sat by Pulse 97 95 95 Oximetry 08/22/17 08/22/17 08/22/17 08:50 09:00 09:10 Temperature Pulse Rate 66 62 63 Respiratory 20 18 13 Rate Blood Pressure 122/87 122/87 122/87 O2 Sat by Pulse 95 94 97 Oximetry 08/22/17 08/22/17 08/22/17 09:20 09:30 09:40 Temperature Pulse Rate 67 64 67 Respiratory 11 L 14 18 Rate Blood Pressure 122/87 122/87 122/87 O2 Sat by Pulse 95 98 92 Oximetry General appearance: Present: no acute distress - EENT Eyes: PERRL, EOM intact ENT: hearing intact - Neck Neck: supple, normal ROM - Respiratory Respiratory effort: normal - Breasts Breasts: deferred - Cardiovascular Rhythm: regular Extremities: no ischemia - Gastrointestinal General gastrointestinal: Present: deferred Rectal Exam: deferred - Genitourinary Male genitourinary: deferred - Neurologic Neurologic: no focal deficits - Psychiatric Psychiatric: appropriate mood/affect, cooperative - Labs CBC & Chem 7: 08/21/17 15:13 08/22/17 05:16 Labs: Abnormal lab results 08/21/17 08/21/17 08/22/17 Range/Units 18:35 20:23 05:16 APTT 66.7 H* (24.2-36.6) Sec. Heparin Anti-Xa Level 0.24 L (0.3-0.7) U.I./ml Potassium 3.5 L (3.6-5.0) mmol/L
[2017-08-22] MEDS: SODIUM CHLORIDE FLUSH SYRINGE 10 ML IV SCH ×3 (11:36→21:46)
[2017-08-22] MEDS: NORCO 5/325 PO PRN ×2 (14:12→20:21)
[2017-08-22] MEDS: ELIQUIS PO SCH ×2 (15:03→21:44)
--- NOTE | 2017-08-22 15:10 | Progress Note ---
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 Date of service: 08/22/17 Principal diagnosis: Syncope; Acute PE; Objective Vital Signs - 12hr 08/22/17 08/22/17 08/22/17 03:30 04:00 05:00 Temperature 98.4 F Pulse Rate 56 L 63 62 Respiratory 19 17 17 Rate Blood Pressure 97/54 O2 Sat by Pulse 98 97 98 Oximetry 08/22/17 08/22/17 08/22/17 05:30 06:00 06:10 Temperature Pulse Rate 61 64 57 L Respiratory 14 18 18 Rate Blood Pressure 112/61 109/77 112/61 O2 Sat by Pulse 96 91 96 Oximetry 08/22/17 08/22/17 08/22/17 06:20 06:30 06:40 Temperature Pulse Rate 61 59 L 59 L Respiratory 19 18 15 Rate Blood Pressure 112/61 112/61 112/61 O2 Sat by Pulse 95 97 94 Oximetry 08/22/17 08/22/17 08/22/17 06:50 07:00 07:10 Temperature Pulse Rate 59 L 62 59 L Respiratory 19 20 15 Rate Blood Pressure 112/61 112/61 112/61 O2 Sat by Pulse 93 93 94 Oximetry 08/22/17 08/22/17 08/22/17 07:20 07:30 07:40 Temperature Pulse Rate 61 59 L 59 L Respiratory 17 20 13 Rate Blood Pressure 112/61 112/61 112/61 O2 Sat by Pulse 94 97 96 Oximetry 08/22/17 08/22/17 08/22/17 07:50 08:00 08:10 Temperature 98.5 F Pulse Rate 56 L 61 60 Respiratory 18 15 19 Rate Blood Pressure 112/61 122/87 122/87 O2 Sat by Pulse 97 97 96 Oximetry 08/22/17 08/22/17 08/22/17 08:20 08:30 08:40 Temperature Pulse Rate 56 L 54 L 68 Respiratory 17 13 14 Rate Blood Pressure 122/87 122/87 122/87 O2 Sat by Pulse 97 95 95 Oximetry 08/22/17 08/22/17 08/22/17 08:50 09:00 09:10 Temperature Pulse Rate 66 62 63 Respiratory 20 18 13 Rate Blood Pressure 122/87 122/87 122/87 O2 Sat by Pulse 95 94 97 Oximetry 08/22/17 08/22/17 08/22/17 09:20 09:30 09:40 Temperature Pulse Rate 67 64 67 Respiratory 11 L 14 18 Rate Blood Pressure 122/87 122/87 122/87 O2 Sat by Pulse 95 98 92 Oximetry 08/22/17 08/22/17 08/22/17 10:00 10:30 11:00 Temperature Pulse Rate 66 69 73 Respiratory 11 L 13 17 Rate Blood Pressure 122/87 122/87 122/87 O2 Sat by Pulse 96 98 96 Oximetry 08/22/17 08/22/17 08/22/17 11:30 12:00 12:30 Temperature 98.7 F Pulse Rate 61 60 63 Respiratory 12 18 15 Rate Blood Pressure 122/87 122/87 122/87 O2 Sat by Pulse 97 97 95 Oximetry 08/22/17 08/22/17 13:00 13:30 Temperature Pulse Rate 71 77 Respiratory 20 18 Rate Blood Pressure 122/87 122/87 O2 Sat by Pulse 91 95 Oximetry Constitutional: no acute distress, alert Eyes: non-icteric ENT: oropharynx moist Neck: supple, no JVD Effort: normal Ascultation: Bilateral: clear, diminished breath sounds Cardiovascular: regular rate and rhythm Gastrointestinal: normoactive bowel sounds, soft, non-tender Integumentary: normal Extremities: other (Pain in left leg.) Neurologic: normal mental status, non-focal exam, pupils equal and round, CN II- XII normal Psychiatric: mood appropriate CBC and BMP: 08/21/17 15:13 08/22/17 05:16 ABG, PT/INR, D-dimer: PT/INR, D-dimer PT 13.6 Sec. (12.2-14.9) 08/21/17 18:35 INR 0.99 (0.87-1.13) 08/21/17 18:35 Abnormal lab findings: Abnormal Labs 08/19/17 08/19/17 08/19/17 21:30 21:30 23:08 RBC 5.51 H Hgb 16.9 H Hct 50.7 H Lymph % (Auto) [place] % (Auto) Eos % (Auto) Seg Neutrophils % 74.9 H APTT Heparin Anti-Xa Level Potassium Carbon Dioxide 21 L BUN Creatinine 1.7 H Glucose 137 H Calcium 11.0 H Total Creatine Kinase 281 H Troponin T 0.200 H* NT-Pro-B Natriuret Pep 3990 H 08/19/17 08/20/17 08/20/17 23:36 01:16 03:20 RBC Hgb 16.2 H Hct 46.4 H Lymph % (Auto) [place] % (Auto) Eos % (Auto) Seg Neutrophils % APTT Heparin Anti-Xa Level Potassium Carbon Dioxide BUN Creatinine Glucose Calcium Total Creatine Kinase Troponin T 0.161 H* 0.143 H* NT-Pro-B Natriuret Pep 08/20/17 08/20/17 08/20/17 08:18 11:49 11:49 RBC Hgb 15.3 H Hct Lymph % (Auto) [place] % (Auto) 9.7 H Eos % (Auto) Seg Neutrophils % APTT 53.1 H Heparin Anti-Xa Level Potassium Carbon Dioxide BUN Creatinine Glucose Calcium Total Creatine Kinase Troponin T NT-Pro-B Natriuret Pep 08/20/17 08/20/17 08/20/17 11:49 18:46 22:55 RBC Hgb Hct Lymph % (Auto) 36.0 H 43.9 H [place] % (Auto) 10.5 H 9.9 H Eos % (Auto) Seg Neutrophils % APTT Heparin Anti-Xa Level Potassium 3.2 L Carbon Dioxide BUN 22 H Creatinine Glucose Calcium Total Creatine Kinase Troponin T NT-Pro-B Natriuret Pep 08/20/17 08/21/17 08/21/17 22:55 06:12 06:12 RBC Hgb Hct Lymph % (Auto) [place] % (Auto) 10.5 H Eos % (Auto) 4.5 H Seg Neutrophils % APTT Heparin Anti-Xa Level 0.21 L Potassium Carbon Dioxide BUN 21 H Creatinine Glucose Calcium Total Creatine Kinase Troponin T NT-Pro-B Natriuret Pep 08/21/17 08/21/17 08/21/17 06:12 18:35 20:23 RBC Hgb Hct Lymph % (Auto) [place] % (Auto) Eos % (Auto) Seg Neutrophils % APTT 66.7 H* Heparin Anti-Xa Level < 0.10 L 0.24 L Potassium Carbon Dioxide BUN Creatinine Glucose Calcium Total Creatine Kinase Troponin T NT-Pro-B Natriuret Pep 08/22/17 05:16 RBC Hgb Hct Lymph % (Auto) [place] % (Auto) Eos % (Auto) Seg Neutrophils % APTT Heparin Anti-Xa Level Potassium 3.5 L Carbon Dioxide BUN Creatinine Glucose Calcium Total Creatine Kinase Troponin T NT-Pro-B Natriuret Pep
--- NOTE | 2017-08-22 15:25 | Vascular Lab Report ---
LOWER EXTREMITY VENOUS DUPLEX: REASON FOR EXAM: DVT. COMMENTS ON THE RIGHT: Acute depp venous thrombosis is seen in the popliteal and peroneal veins. The remaining veins visualized are freely compressible without evidence of internal echogenicity. Spontaneous and phasic flow is present proximally. COMMENTS ON THE LEFT: All veins visualized are freely compressible without evidence of internal echogenicity. Flow is spontaneous and phasic throughout. IMPRESSION: Acute DVT of the right popliteal and peroneal veins. No evidence of acute DVT in the left lower extremity.
--- NOTE | 2017-08-22 15:26 | Progress Note ---
Assessment and Plan Syncope due to submassive PE Acute pulmonary embolism with RV strain status post EKOS Rt LE DVT Elevated troponin, due to acute PE Hypertension MAITE, vasomotor nephropathy, resolved Tobacco abuse, counselled - Status post catheter directed thrombolysis of pulmonary arteries - Removed thrombolytic catheters, d/arma heparin drip today. - will convert patient to oral anticoagulation today with Eliquis 10 mg PO BID x 7 days, then Eliquis 5 mg PO BID. 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 In the ER patient was found to have high probability of PE on VQ scan, bedside echo showed severe right ventricle dilated with RV pressure overload. LE doppler showed Rt LE DVT. Subjective Date of service: 08/22/17 Principal diagnosis: Syncope; Acute PE; Interval history: Pt seen and examined No acute event o/n no active bleeding tolerating diet Objective - Constitutional Vitals: Vital Signs - 12hr 08/22/17 08/22/17 08/22/17 03:30 04:00 05:00 Temperature 98.4 F Pulse Rate 56 L 63 62 Respiratory 19 17 17 Rate Blood Pressure 97/54 O2 Sat by Pulse 98 97 98 Oximetry 08/22/17 08/22/17 08/22/17 05:30 06:00 06:10 Temperature Pulse Rate 61 64 57 L Respiratory 14 18 18 Rate Blood Pressure 112/61 109/77 112/61 O2 Sat by Pulse 96 91 96 Oximetry 08/22/17 08/22/17 08/22/17 06:20 06:30 06:40 Temperature Pulse Rate 61 59 L 59 L Respiratory 19 18 15 Rate Blood Pressure 112/61 112/61 112/61 O2 Sat by Pulse 95 97 94 Oximetry 08/22/17 08/22/17 08/22/17 06:50 07:00 07:10 Temperature Pulse Rate 59 L 62 59 L Respiratory 19 20 15 Rate Blood Pressure 112/61 112/61 112/61 O2 Sat by Pulse 93 93 94 Oximetry 08/22/17 08/22/17 08/22/17 07:20 07:30 07:40 Temperature Pulse Rate 61 59 L 59 L Respiratory 17 20 13 Rate Blood Pressure 112/61 112/61 112/61 O2 Sat by Pulse 94 97 96 Oximetry 08/22/17 08/22/17 08/22/17 07:50 08:00 08:10 Temperature 98.5 F Pulse Rate 56 L 61 60 Respiratory 18 15 19 Rate Blood Pressure 112/61 122/87 122/87 O2 Sat by Pulse 97 97 96 Oximetry 08/22/17 08/22/17 08/22/17 08:20 08:30 08:40 Temperature Pulse Rate 56 L 54 L 68 Respiratory 17 13 14 Rate Blood Pressure 122/87 122/87 122/87 O2 Sat by Pulse 97 95 95 Oximetry 08/22/17 08/22/17 08/22/17 08:50 09:00 09:10 Temperature Pulse Rate 66 62 63 Respiratory 20 18 13 Rate Blood Pressure 122/87 122/87 122/87 O2 Sat by Pulse 95 94 97 Oximetry 08/22/17 08/22/17 08/22/17 09:20 09:30 09:40 Temperature Pulse Rate 67 64 67 Respiratory 11 L 14 18 Rate Blood Pressure 122/87 122/87 122/87 O2 Sat by Pulse 95 98 92 Oximetry 08/22/17 08/22/17 08/22/17 10:00 10:30 11:00 Temperature Pulse Rate 66 69 73 Respiratory 11 L 13 17 Rate Blood Pressure 122/87 122/87 122/87 O2 Sat by Pulse 96 98 96 Oximetry 08/22/17 08/22/17 08/22/17 11:30 12:00 12:30 Temperature 98.7 F Pulse Rate 61 60 63 Respiratory 12 18 15 Rate Blood Pressure 122/87 122/87 122/87 O2 Sat by Pulse 97 97 95 Oximetry 08/22/17 08/22/17 13:00 13:30 Temperature Pulse Rate 71 77 Respiratory 20 18 Rate Blood Pressure 122/87 122/87 O2 Sat by Pulse 91 95 Oximetry General appearance: Present: no acute distress, well-nourished - EENT Eyes: PERRL, EOM intact ENT: hearing intact, clear oral mucosa Ears: bilateral: normal - Neck Neck: supple, normal ROM - Respiratory Respiratory effort: normal Respiratory: bilateral: CTA - Cardiovascular Rhythm: regular Heart Sounds: Present: S1 & S2. Absent: gallop, rub Extremities: pulses intact, No edema, normal color, Full ROM - Gastrointestinal General gastrointestinal: Present: soft, non-tender, non-distended, normal bowel sounds - Integumentary Integumentary: clear, warm, dry - Musculoskeletal Musculoskeletal: 1, strength equal bilaterally - Neurologic Neurologic: moves all extremities - Psychiatric Psychiatric: memory intact, appropriate mood/affect, intact judgment & insight - Labs CBC & Chem 7: 08/21/17 15:13 08/22/17 05:16 Labs: Abnormal lab results 08/21/17 08/21/17 08/22/17 Range/Units 18:35 20:23 05:16 APTT 66.7 H* (24.2-36.6) Sec. Heparin Anti-Xa Level 0.24 L (0.3-0.7) U.I./ml Potassium 3.5 L (3.6-5.0) mmol/L
[2017-08-22] MEDS ORDERED: K-DUR PO ONE (16:50)
[2017-08-23] MEDS: DILAUDID IV PRN ×2 (02:22→10:30)
[2017-08-23] MEDS: NORCO 5/325 PO PRN (05:46)
[2017-08-23 05:52] LABS: Hemoglobin 13.6 gm/dl (11.8-15.2)
[2017-08-23 06:17] LABS: BUN/Creatinine Ratio 13; Blood Urea Nitrogen 15 mg/dL (9-20); Calcium 8.7 mg/dL (8.4-10.2); Hemolysis Index 2
[2017-08-23] MEDS: ELIQUIS PO SCH (10:21)
[2017-08-23] MEDS: SODIUM CHLORIDE FLUSH SYRINGE 10 ML IV SCH (10:22)
--- NOTE | 2017-08-23 11:03 | Progress Note ---
Assessment and Plan Assessment: Syncope Acute pulmonary embolism with RV dysfunction status post bilateral ekos Acute RLE DVT Cor pulmonale Non-ST elevation SD type II Hypertension Acute renal insufficiency - improving Pulmonary HTN Tobacco use Plan: Anticoagulation as per the primary team. Currently stable cardiac status. Pt may discharge home from cardiology standpoint. Follow up in our [place] office with Dr. Valdez on 08/29/2017 @ 1:45PM. Assessment and plan reviewed with pt at bedside. The patient has been seen in conjunction with Dr. Karla Pulido who agrees with the assessment and plan of care. Subjective Date of service: 08/23/17 Principal diagnosis: Syncope; Acute PE; Interval history: pt resting comfortably in bed, no current cardiac complaints. Objective Last Vital Signs Temp 98.4 F 08/23/17 08:05 Pulse 61 08/23/17 08:05 Resp 20 08/23/17 10:00 BP 105/61 08/23/17 08:05 Pulse Ox 96 08/23/17 09:00 - Physical Examination General: No Apparent Distress HEENT: Positive: PERRL, Mucus Membranes Moist Neck: Positive: neck supple, trachea midline Cardiac: Positive: Reg Rate and Rhythm, S1/S2 Lungs: Positive: clear to auscultation Neuro: Positive: Grossly Intact Abdomen: Positive: Soft, Active Bowel Sounds. Negative: Tender, Distended Skin: Positive: Clear Incision: Cardiac Cath Site Musculoskeletal: No Pain, Normal Range of Motion Extremities: Present: normal. Absent: edema - Labs and Meds CBC 08/23/17 Range/Units 04:37 Hgb 13.6 (11.8-15.2) gm/dl Hct 41.0 (35.5-45.6) % Plt Count 161 (140-440) K/mm3 Comprehensive Metabolic Panel 08/23/17 Range/Units 04:37 Sodium 144 (137-145) mmol/L Potassium 3.9 (3.6-5.0) mmol/L Chloride 105.7 (98-107) mmol/L Carbon Dioxide 26 (22-30) mmol/L BUN 15 (9-20) mg/dL Creatinine 1.2 (0.8-1.5) mg/dL Glucose 89 (75-100) mg/dL Calcium 8.7 (8.4-10.2) mg/dL - Imaging and Cardiology EKG: image reviewed Echo: report reviewed (normal LV function mild mitral regurgitation no aortic stenosis right ventricle is severely dilated and dysfunctional with RV pressure overload noted) - Telemetry EKG Rhythm: Sinus Rhythm
--- NOTE | 2017-08-23 15:12 | Discharge Summary ---
Providers - Providers Date of Admission: 08/20/17 01:46 Date of discharge: 08/23/17 Attending physician: JAMES JIMENEZ 08/19/17 22:56 Consult to Physician [CONS] Urgent Comment: Dr. Perea spoke with Dr. Porras @[id number] Consulting Provider: SHANNON PORRAS Physician Instructions: Reason For Exam: ? massive pe 08/19/17 23:02 Consult to Physician [CONS] Urgent Comment: Dr. Perea spoke with Dr. 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 In the ER patient was found to have high probability of PE on VQ scan, bedside echo showed severe right ventricle dilated with RV pressure overload. LE doppler showed Rt LE DVT. Syncope due to submassive PE Acute pulmonary embolism with RV strain status post EKOS Acute diastolic heart failure/cor pulmonale due to PE, poa Acute provoked (suspected due to long distance travel) Right LE DVT Elevated troponin, due to acute PE, cardiology evaluated Hypertension MAITE, vasomotor nephropathy, resolved Tobacco abuse, counselled to stop done Hypokalemia, replaced - Status post catheter directed thrombolysis of pulmonary arteries - Removed thrombolytic catheters, transferred out of the ICU - will convert patient to oral anticoagulation today with Eliquis 10 mg PO BID x 7 days, then Eliquis 5 mg PO BID. - possible d/c today on Eliquis Operative Report (abbreviated): EXAM: 1. Ultrasound guided access of the right common femoral vein 2. Ultrasound guided access of the right common femoral vein 3. Selection of the right atrium, right ventricle, main pulmonary artery, and right main pulmonary artery 4. Selection of the right lower lobar pulmonary artery and a segmental branch of the right lower lobar pulmonary artery 5. Angiography of a segmental branch of the right lower lobar pulmonary artery 6. Fluoroscopic guided placement of a 106 cm x 12 cm infusion length EKOS thrombolytic catheter in the right lower lobar segmental pulmonary artery 7. Selection of the right atrium, right ventricle, main pulmonary artery, left main pulmonary artery, and left lobar pulmonary artery 8. Pressure measurements of the main pulmonary artery (51/20) - MAP 34 9. Selection and angiography of a lobar and segmental branch of the left lower lobar pulmonary artery 10. Fluoroscopic guided placement of a 106 cm x 12 cm infusion length EKOS thrombolytic catheter in the left lower lobar segmental pulmonary artery DATE: 08/20/17 RESTAURANT FLOOR MANAGER: SHANNON PORRAS MD INDICATION: Submassive pulmonary embolism with right heart strain on echo with shortness of breath and troponin leak and elevated BNP. .... FINDINGS: 1. Please see procedure note above IMPRESSION: Successful pulmonary angiograms and pulmonary artery selections for thrombolytic therapy. Successful placement of EKOS catheters in the right lower lobe segmental/ subsegmental pulmonary artery and left lower lobe segmental/subsegmental pulmonary artery. Disposition: DC-01 TO HOME OR SELFCARE Time spent for discharge: 36 minutes Core Measure Documentation - Palliative Care Palliative Care/ Comfort Measures: Not Applicable - Core Measures Any of the following diagnoses?: DVT/PE - VTE Discharge Requirements Deep Vein Thrombosis/Pulmonary Embolism Present on Admission: Yes Has pt received <5 days of overlap therapy or INR<2.0: No (home with Eliqu) Anticoagulant overlap therapy prescribed at discharge: No Contraindication No Overlap Therapy order at DC: Not Indicated Exam - Physical Exam Narrative exam: GEN: WDWN, NAD, Awake, Alert, Orientated x 3 HEENT: NCAT, EOMI, PERRL, OP Clear NECK: supple, no adenopathy, no thyromegaly, no JVD CVS/HEART: RRR, normal S1S2, pulses present bilaterally CHEST/LUNGS: CTA B, Symmetrical chest expansion, good air entry bilaterally GI/Abdomen: soft, NTND, good bowel sounds, no guarding or rebound /Bladder: no suprapubic tenderness, no CVA or paraspinal tenderness EXT/Skin: no c/c/e, no obvious rash MSK: FROM x 4 Neuro: CN 2-12 grossly intact, no new focal deficits Psych: calm - Constitutional Vitals: Temp Pulse Resp BP Pulse Ox 98.4 F 61 20 105/61 96 08/23/17 08:05 08/23/17 08:05 08/23/17 10:00 08/23/17 08:05 08/23/17 09:00 Plan Activity: no driving until cleared by PCP (no driving until cleared by Cardiology ), other (no strenous activities until cleared by Cardiology) Diet: low salt Special Instructions: smoking cessation Additional Instructions: See Dr. Victor for the blood clots Follow up with: PRIMARY MD WOOD [Primary Care Provider] - 3-5 Days RENETTA VALDEZ MD [Staff Physician] - 7 Days (Follow up in our [place] office with Dr. Valdez on 08/29/2017 @ 1:45PM. ) OSCAR VICTOR MD [Staff Physician] - 7 Days Prescriptions: Apixaban [Eliquis] 5 mg PO BID 30 Days tablet HYDROcodone/APAP 5-325 [Point 5-325 mg TAB] 1 each PO Q6H PRN #20 tablet PRN Reason: Pain , Severe (7-10)
[2017-08-23 17:42] VITALS: BP 102/66
== END 2017-08-23 18:25 | disposition home or self-care (01) | DRG 280 ==
LOC: ED 20:52 → 4A 08-20 01:46 → CC1 08-20 12:27 → 4A 08-22 15:04
PROVIDERS: ADMIT Internal Medicine; ATTEND Internal Medicine
PROC: 02HQ33Z Insertion of Infusion Device into Right Pulmonary Artery, Percutaneous Approach (ICD-10-PCS; principal; 2017-08-20)
PROC: 02HR33Z Insertion of Infusion Device into Left Pulmonary Artery, Percutaneous Approach (ICD-10-PCS; 2017-08-20)
PROC: 3E06317 Introduction of Other Thrombolytic into Central Artery, Percutaneous Approach (ICD-10-PCS; 2017-08-20)
PROC: B31U1ZZ Fluoroscopy of Pulmonary Trunk using Low Osmolar Contrast (ICD-10-PCS; 2017-08-20)
PROC: 6A751Z7 Ultrasound Therapy of Other Vessels, Multiple (ICD-10-PCS; 2017-08-20)
DX: I21.A1 Myocardial infarction type 2 (principal); I26.09 Other pulmonary embolism with acute cor pulmonale; N17.0 Acute kidney failure with tubular necrosis; I50.31 Acute diastolic (congestive) heart failure; I13.0 Hypertensive heart and chronic kidney disease with heart failure and stage 1 through stage 4 chronic kidney disease, or unspecified chronic kidney disease; I28.1 Aneurysm of pulmonary artery; I82.431 Acute embolism and thrombosis of right popliteal vein; I82.491 Acute embolism and thrombosis of other specified deep vein of right lower extremity; E87.6 Hypokalemia; F17.210 Nicotine dependence, cigarettes, uncomplicated; N18.9 Chronic kidney disease, unspecified; Z82.49 Family history of ischemic heart disease and other diseases of the circulatory system; Z71.6 Tobacco abuse counseling
CPT/HCPCS: 36415; 37211; 70450; 71045; 71250; 78582; 80048; 80061; 82550; 83735; 83880; 84484; 85014; 85018; 85025; 85027; 85049; 85384; 85520; 85610; 85730; 86850; 86900; 86901; 93005; 93010; 93306; 93970; 94760; 96374; 96375; 99406; A9540; A9558; C1757; C1769; C1894; J0690; J1170; J1644; J2250; J2270; J2997; J3010; J3480; J7030; J7040; J7050; Q9967